=== PATIENT | male | born 1955 | race Two or more races ===

== ENCOUNTER 2018-01-10 10:47 | Inpatient (IN) ==
--- NOTE | 2018-01-10 11:23 | ED ---
HPI General Chief Complaint: Chest Pain Stated Complaint: chest pain/headache/dizziness Time Seen by Provider: 01/10/18 10:58 Source: patient and family Mode of arrival: ambulatory Limitations: language barrier (Surgery Aid used to confirm history) History of Present Illness HPI Narrative: 62-year-old male states that in [place] he had a blood transfusion for low hemoglobin a couple months ago and they had rechecked his hemoglobin in November and it was at 6 and they placed him on iron but he has not had a recheck since then. He states he has been getting progressively more dizzy and lightheaded. He states for a couple weeks he has also had some chest pain is about a 3 out of 10. He states he takes aspirin but has not had any since yesterday. He states he also intermittently gets headaches but denies headache at this time. He denies any other concurrent complaints. He states he has been here since November. complaint: dizziness Onset (ago): week(s) Timing: gradual onset Description: lightheadedness History of similar episodes: Yes History of trauma: No Severity: mild Relieving factors: nothing Exacerbating factors: exertion Associated symptoms: chest pain Related Data Home Medications Medication Instructions Recorded Confirmed aspirin [Aspirin Low Dose] 81 mg PO DAILY 01/10/18 01/10/18 finasteride 5 mg PO DAILY 01/10/18 01/10/18 olmesartan-hydrochlorothiazide 1 tab PO DAILY 01/10/18 01/10/18 [Benicar HCT] tamsulosin [Flomax] 0.4 mg PO DAILY 01/10/18 01/10/18 Allergies Allergy/AdvReac Type Severity Reaction Status Date / Time No Known Allergies Allergy Unverified 01/10/18 11:16 Review of Systems ROS: all other systems reviewed are negative [facility] Medical History Medical History Anemia (Acute) HTN (hypertension) (Acute) Hypoglycemia (Acute) Murmur (Acute) Surgical History Surgical History History of tonsillectomy (Acute) Social History Social History Substance History: No History of Abuse Second Hand Smoke Exposure: No Smoking Status: Never smoker How Often Do You Have a Drink Containing Alcohol: Never Recent Travel in [facility] within the Last 8 Weeks: No Recent Out of Country Travel within the Last 8 Weeks: No Immunization History Tetanus Immunization: Never Vaccinated Hx Influenza Vaccine This Season: No Exam Narrative Exam Narrative: GENERAL: 62-year-old male in no apparent distress SKIN: Focused skin assessment warm/dry. HEAD: Atraumatic. Normocephalic. EYES: Pupils equal and round. No scleral icterus. No injection or drainage. ENT: No nasal bleeding or discharge. Mucous membranes pink and moist. NECK: Trachea midline. CARDIOVASCULAR: Regular rate and rhythm. No murmur appreciated. RESPIRATORY: No accessory muscle use. Clear to auscultation. Breath sounds equal bilaterally. GASTROINTESTINAL: Abdomen soft, non-tender, nondistended. MUSCULOSKELETAL: No obvious deformities. No clubbing. No cyanosis. No edema. NEUROLOGICAL: Awake and alert. No obvious cranial nerve deficits. Motor grossly within normal limits. Normal speech. PSYCHIATRIC: Appropriate mood and affect; insight and judgment normal. Course Reevaluation(s) Reevaluation #1: Patient updated and agrees to admission. Denies any active bleeding, aspirin held given anemia Consultations Consultation #1: resident team agrees to admit Initial Documented Vital Signs Temperature 98.3 F 01/10/18 10:49 Pulse Rate 106 H 01/10/18 10:49 Respiratory Rate 20 01/10/18 10:49 Blood Pressure 115/59 L 01/10/18 10:49 Pulse Oximetry 98 01/10/18 10:49 Last Documented Vital Signs Temperature 98.3 F 01/10/18 10:49 Pulse Rate 98 H 01/10/18 11:09 Respiratory Rate 18 01/10/18 11:09 Blood Pressure 130/68 01/10/18 11:09 Pulse Oximetry 98 01/10/18 12:37 Medical Decision Making MDM Narrative Medical decision making narrative: Will check blood work, imaging and reevaluate. Medical Screen Exam Complete: Yes Emergency Medical Condition: Yes Differential Diagnosis Differential Diagnosis: Anemia, gastritis, musculoskeletal, atypical cardiac Lab Data Lab results reviewed: Yes I reviewed the patient's lab results. Result diagrams: 01/10/18 11:20 01/10/18 11:20 Lab Results 01/10/18 01/10/18 01/10/18 Range/Units 11:20 11:20 11:20 WBC 4.4 (4.0-11.0) th/mm3 RBC 4.23 L (4.50-5.90) mil/mm3 Hgb 7.6 L (13.0-17.0) gm/dL Hct 25.8 L (39.0-51.0) % MCV 60.8 L (80.0-100.0) fL MCH 17.9 L (27.0-34.0) pg MCHC 29.5 L (32.0-36.0) % RDW 22.0 H (11.6-17.2) % Plt Count 388 (150-450) th/mm3 MPV 8.3 (7.0-11.0) fL Neut % (Auto) 52.3 (16.0-70.0) % Lymph % (Auto) 27.7 (9.0-44.0) % Mcdonald % (Auto) 16.0 H (0.0-8.0) % Eos % (Auto) 2.8 (0.0-4.0) % Baso % (Auto) 1.2 (0.0-2.0) % Neut # (Auto) 2.3 (1.8-7.7) th/mm3 Lymph # (Auto) 1.2 (1.0-4.8) th/mm3 Mcdonald # (Auto) 0.7 (0.0-0.9) th/mm3 Eos # (Auto) 0.1 (0.0-0.4) th/mm3 Baso # (Auto) 0.1 (0.0-0.2) th/mm3 WBC Differential . Differential Comment Auto diff final PT 10.7 (9.8-11.6) sec INR 1.1 Ratio APTT 23.7 L (24.3-30.1) sec Sodium 141 (136-145) meq/L Potassium 3.7 (3.5-5.1) meq/L Chloride 108 H (98-107) meq/L Carbon Dioxide 24.9 (21.0-32.0) meq/L Anion Gap 8 (5-15) meq/L BUN 15 (7-18) mg/dL Creatinine 0.94 (0.60-1.30) mg/dL Estimated GFR 81 L (>89) mL/min Random Glucose 142 H (74-106) mg/dL Calcium 8.0 L (8.5-10.1) mg/dL Magnesium (1.5-2.5) mg/dL Iron (65-175) mcg/dL TIBC (250-450) mcg/dL % Saturation (20-50) % Total Bilirubin 1.0 (0.2-1.0) mg/dL AST 16 (15-37) U/L ALT 22 (12-78) U/L Alkaline Phosphatase 46 (45-117) U/L Total Creatine Kinase 125 (39-308) U/L CK-MB (CK-2) 2.3 (0.5-3.6) ng/mL Troponin I Less than 0.02 L (0.02-0.05) ng/mL B-Natriuretic Peptide (0-100) pg/mL Total Protein 7.0 (6.4-8.2) g/dL Albumin 3.6 (3.4-5.0) g/dL Blood Type 01/10/18 01/10/18 01/10/18 Range/Units 11:20 11:20 11:20 WBC (4.0-11.0) th/mm3 RBC (4.50-5.90) mil/mm3 Hgb (13.0-17.0) gm/dL Hct (39.0-51.0) % MCV (80.0-100.0) fL MCH (27.0-34.0) pg MCHC (32.0-36.0) % RDW (11.6-17.2) % Plt Count (150-450) th/mm3 MPV (7.0-11.0) fL Neut % (Auto) (16.0-70.0) % Lymph % (Auto) (9.0-44.0) % Mcdonald % (Auto) (0.0-8.0) % Eos % (Auto) (0.0-4.0) % Baso % (Auto) (0.0-2.0) % Neut # (Auto) (1.8-7.7) th/mm3 Lymph # (Auto) (1.0-4.8) th/mm3 Mcdonald # (Auto) (0.0-0.9) th/mm3 Eos # (Auto) (0.0-0.4) th/mm3 Baso # (Auto) (0.0-0.2) th/mm3 WBC Differential Differential Comment PT (9.8-11.6) sec INR Ratio APTT (24.3-30.1) sec Sodium (136-145) meq/L Potassium (3.5-5.1) meq/L Chloride (98-107) meq/L Carbon Dioxide (21.0-32.0) meq/L Anion Gap (5-15) meq/L BUN (7-18) mg/dL Creatinine (0.60-1.30) mg/dL Estimated GFR (>89) mL/min Random Glucose (74-106) mg/dL Calcium (8.5-10.1) mg/dL Magnesium 2.0 (1.5-2.5) mg/dL Iron (65-175) mcg/dL TIBC (250-450) mcg/dL % Saturation (20-50) % Total Bilirubin (0.2-1.0) mg/dL AST (15-37) U/L ALT (12-78) U/L Alkaline Phosphatase (45-117) U/L Total Creatine Kinase (39-308) U/L CK-MB (CK-2) (0.5-3.6) ng/mL Troponin I (0.02-0.05) ng/mL B-Natriuretic Peptide 66 (0-100) pg/mL Total Protein (6.4-8.2) g/dL Albumin (3.4-5.0) g/dL Blood Type O Positive 01/10/18 Range/Units 11:20 WBC (4.0-11.0) th/mm3 RBC (4.50-5.90) mil/mm3 Hgb (13.0-17.0) gm/dL Hct (39.0-51.0) % MCV (80.0-100.0) fL MCH (27.0-34.0) pg MCHC (32.0-36.0) % RDW (11.6-17.2) % Plt Count (150-450) th/mm3 MPV (7.0-11.0) fL Neut % (Auto) (16.0-70.0) % Lymph % (Auto) (9.0-44.0) % Mcdonald % (Auto) (0.0-8.0) % Eos % (Auto) (0.0-4.0) % Baso % (Auto) (0.0-2.0) % Neut # (Auto) (1.8-7.7) th/mm3 Lymph # (Auto) (1.0-4.8) th/mm3 Mcdonald # (Auto) (0.0-0.9) th/mm3 Eos # (Auto) (0.0-0.4) th/mm3 Baso # (Auto) (0.0-0.2) th/mm3 WBC Differential Differential Comment PT (9.8-11.6) sec INR Ratio APTT (24.3-30.1) sec Sodium (136-145) meq/L Potassium (3.5-5.1) meq/L Chloride (98-107) meq/L Carbon Dioxide (21.0-32.0) meq/L Anion Gap (5-15) meq/L BUN (7-18) mg/dL Creatinine (0.60-1.30) mg/dL Estimated GFR (>89) mL/min Random Glucose (74-106) mg/dL Calcium (8.5-10.1) mg/dL Magnesium (1.5-2.5) mg/dL Iron 22 L (65-175) mcg/dL TIBC 456 H (250-450) mcg/dL % Saturation 4.8 L (20-50) % Total Bilirubin (0.2-1.0) mg/dL AST (15-37) U/L ALT (12-78) U/L Alkaline Phosphatase (45-117) U/L Total Creatine Kinase (39-308) U/L CK-MB (CK-2) (0.5-3.6) ng/mL Troponin I (0.02-0.05) ng/mL B-Natriuretic Peptide (0-100) pg/mL Total Protein (6.4-8.2) g/dL Albumin (3.4-5.0) g/dL Blood Type Imaging Data Attestation: I personally reviewed and interpreted this imaging study as follows : Radiologist's impression: Chest X-Ray 01/10/18 11:16 CONCLUSION: No acute cardiopulmonary disease. Hiatal hernia. Discharge Plan Discharge Disposition Patient Disposition: 30 Still Patient Discharge Condition Condition: Stable Discharge Details Diagnosis: Anemia, Dizziness, Chest pain Physicians Team ED Provider: Dianne Guzman Primary Care Provider: Primary Care Mellisa Muniz Rxs /Orders / Referrals /Forms Prescriptions: No Action aspirin [Aspirin Low Dose] 81 mg Tablet,Delayed Release (Dr/Ec) 81 mg PO DAILY RF: 0 tamsulosin [Flomax] 0.4 mg Capsule,Extended Release 24hr 0.4 mg PO DAILY RF: 0 finasteride 5 mg Tablet 5 mg PO DAILY RF: 0 olmesartan-hydrochlorothiazide [Benicar HCT] 40-25 mg Tablet 1 tab PO DAILY RF: 0 Discharge Instructions Patient Printed Instructions: Chest Pain (ED) Discharge Interventions Interventions: Vital Signs Last Done: 01/10/18 11:09 Status ED Status: Admitted Patient
[2018-01-10 11:55] LABS: Baso # (Auto) 0.1 th/mm3 (0.0-0.2); Baso % (Auto) 1.2 % (0.0-2.0); Eos # (Auto) 0.1 th/mm3 (0.0-0.4); Eos % (Auto) 2.8 % (0.0-4.0); Hematocrit 25.8 % (39.0-51.0); Hemoglobin 7.6 gm/dL (13.0-17.0); Lymph # (Auto) 1.2 th/mm3 (1.0-4.8); Lymph % (Auto) 27.7 % (9.0-44.0); Mean Corpuscular Hemoglobin 17.9 pg (27.0-34.0); Mean Corpuscular Volume 60.8 fL (80.0-100.0); Mean Platelet Volume 8.3 fL (7.0-11.0); Mono # (Auto) 0.7 th/mm3 (0.0-0.9); Neut # (Auto) 2.3 th/mm3 (1.8-7.7); Neut % (Auto) 52.3 % (16.0-70.0); Platelet Count 388 th/mm3 (150-450); Red Blood Count 4.23 mil/mm3 (4.50-5.90); White Blood Count 4.4 th/mm3 (4.0-11.0)
[2018-01-10 11:56] LABS: Mean Corpuscular HGB Conc 29.5 % (32.0-36.0)
--- NOTE | 2018-01-10 11:59 | XR ---
EXAM DATE: 01/10/2018 11:51 AM EDT AGE/SEX: 62 years / Male INDICATIONS: Chest pain. CLINICAL DATA: This is the patient's initial encounter. Patient reports that signs and symptoms have been present for 1 day and indicates a pain score of 5/10. MEDICAL/SURGICAL HISTORY: Hypertension. None. COMPARISON: No prior exams available for comparison. FINDINGS: A single AP view of the chest demonstrates the lungs to be symmetrically aerated without evidence of mass, infiltrate or effusion. The cardiomediastinal contours are unremarkable. Hiatal hernia. Osseou s structures are intact. CONCLUSION: No acute cardiopulmonary disease. Hiatal hernia. Electronically signed by: Gregor Gale MD 01/10/2018 11:58 AM EDT
[2018-01-10 12:04] LABS: Activated Partial Thrombo Time 23.7 sec (24.3-30.1); INR 1.1 Ratio; Prothrombin Time 10.7 sec (9.8-11.6)
[2018-01-10 12:05] LABS: Alanine Aminotransferase 22 U/L (12-78); Albumin 3.6 g/dL (3.4-5.0); Anion Gap 8 meq/L (5-15); Aspartate Aminotransferase 16 U/L (15-37); Blood Urea Nitrogen 15 mg/dL (7-18); Carbon Dioxide 24.9 meq/L (21.0-32.0); Chloride 108 meq/L (98-107); Glomerular Filtration Rate 81 mL/min (>89); Glucose,Random 142 mg/dL (74-106); Potassium 3.7 meq/L (3.5-5.1); Sodium 141 meq/L (136-145)
[2018-01-10 12:08] LABS: Alkaline Phosphatase 46 U/L (45-117); Creatine Kinase 125 U/L (39-308)
[2018-01-10 12:20] LABS: Creatine Kinase MB 2.3 ng/mL (0.5-3.6)
[2018-01-10 12:57] LABS: % Iron Saturation 4.8 % (20-50); Iron 22 mcg/dL (65-175); Total Iron Binding Capacity 456 mcg/dL (250-450)
[2018-01-10] MEDS ORDERED: Sodium Chlor 0.9% Inj 250 ML IV.SIG SCH (13:00)
[2018-01-10] MEDS ORDERED: Bisacodyl 10 MG Supp RECTAL PRN (13:19)
[2018-01-10] MEDS ORDERED: Temazepam 15 MG Capsule PO PRN (13:19)
[2018-01-10] MEDS ORDERED: Acetaminophen 325 MG Tablet PO PRN (13:19)
--- NOTE | 2018-01-10 13:48 | P.HPFP ---
History of Present Illness Primary Care Physician: No Primary Care Physician <Clarissa Torres - 01/11/18 13:08> No Primary Care Physician <Jean Krishna - 01/10/18 13:48> Chief Complaint: Dizziness and chest discomfort <Jean Krishna - 01/10/18 13:48> History of Present Illness: 62-year-old Danish-speaking male with a history of hypertension, hyperlipidemia , anxiety and depression as well as a known history of anemia presenting to the emergency department with complaints of dizziness and chest discomfort. Patient states for the last several months he has had occasional dizziness/ lightheadedness. He also endorses left-sided headache and occasional blurry vision. Denies any syncopal episodes, falls or injuries. States for the last week he has had occasional exertional chest pain. Describes it as substernal pressure that does not radiate to his neck, back or shoulder. Patient states that he has been told he has anemia for the last 10 years. He was told previously that it was a "production problem" and states he has had 3 different blood transfusions over the last 10 years while in [place]. He also states that 2 months ago he was in [facility] and went to hospital for the dizziness and had an EGD/colonoscopy done, but was not told what the results were. He states he did not receive a blood transfusion at that time. Denies any hematemesis, melena, blood in his stool. Patient has been taking supplemental iron and has received vitamin B12 shots in the past as well. He is not established with a primary care physician since moving to the [facility]. <Jean Krishna - 01/10/18 13:48> - Diagnosis (1) Anemia (2) Chest pain (3) Dizziness (4) HTN (hypertension) (5) BPH (benign prostatic hyperplasia) (6) Nutrition, metabolism, and development symptoms <Clarissa Torres - 01/11/18 13:08> (1) Anemia (2) Chest pain (3) Dizziness (4) HTN (hypertension) (5) BPH (benign prostatic hyperplasia) (6) Nutrition, metabolism, and development symptoms <Jean Krishna - 01/10/18 13:26> Inpatient Certification: I certify that the inpatient services were ordered in accordance with Medicare regulations governing the order. This includes certification that hospital inpatient services are reasonable and necessary and in the case of services not specified as inpatient-only under 42 CFR 419.22(n), that they are appropriately provided as inpatient services in accordance to with the 2-midnight benchmark under 43 CFR 412.3(e) <MelissaClarissa M 01/11/18 13:08> Review of Systems Constitutional: Reports headache(s), Denies chills, Denies fever(s) <Jean Krishna 01/10/18 13:48> Ears, Nose, Mouth, and Throat: Denies nosebleed, Denies sore throat <Jean Krishna 01/10/18 13:48> Cardiovascular: Reports chest pain, Reports chest pain with activity, Denies irregular heart rhythm, Denies radiating jaw, neck or arm pain <Jean Krishna 01/10/18 13:48> Respiratory: Denies cough, Denies wheezing <Jean Krishna 01/10/18 13:48> Gastrointestinal: Denies abdominal pain, Denies black, tarry stools, Denies change in stools, Denies vomiting, Denies vomiting blood <Jean Krishna 01/10/18 13:48> Hematologic/Lymphatic: Denies easy bleeding, Denies easy bruising <Jean Krishna 01/10/18 13:48> PMFSH - History History Provided By: Patient, Family Member <Jean Krishna 01/10/18 13:48 > - Medical History Medical History: Medical History (Last Reviewed 01/10/18 @ 13:35 by Jean Krishna MD, R2) Anemia HTN (hypertension) Hypoglycemia Murmur <Clarissa Torres 01/11/18 13:08> Medical History (Last Reviewed 01/10/18 @ 13:35 by Jean Krishna MD, R2) Anemia HTN (hypertension) Hypoglycemia Murmur <Jean Krishna 01/10/18 13:48> - Surgical History Surgical History: Surgical History (Last Reviewed 01/10/18 @ 13:35 by Jean Krishna MD, R2) History of tonsillectomy <Clarissa Torres 01/11/18 13:08> Surgical History (Last Reviewed 01/10/18 @ 13:35 by Jean Krishna MD, R2) History of tonsillectomy <Jean Krishna - 01/10/18 13:48> - Tobacco History Second Hand Smoke Exposure: No <Jean Krishna 01/10/18 13:48> Smoking Status: Never smoker <Jean Krishna 01/10/18 13:48> - Alcohol History How Often Do You Have a Drink Containing Alcohol: Never <Jean Krishna 13:48> - Substance Use History Substance History: No History of Abuse <Jean Krishna 01/10/18 13:48> - Travel History Recent Travel in the [place] Within the Last 8 Weeks: No <Jean Krishna 01/10 13:48> Recent Travel Out of the Country Within the Last 8 Weeks: No <Jean Krishna 01/10/18 13:48> - Immunization History Tetanus Immunization: Never Vaccinated <Jean Krishna 01/10/18 13:48> Hx Influenza Vaccine This Season: No <Jean Krishna 01/10/18 13:48> Medications and Allergies Allergies Allergy/AdvReac Type Severity Reaction Status Date / Time No Known Allergies Allergy Unverified 01/10/18 11:16 <Clarissa Torres - 01/11/18 13:08> Home Medications Medication Instructions Recorded Confirmed Type aspirin [Aspirin Low Dose] 81 mg PO DAILY 01/10/18 01/10/18 History finasteride 5 mg PO DAILY 01/10/18 01/10/18 History olmesartan-hydrochlorothiazide 1 tab PO DAILY 01/10/18 01/10/18 History [Benicar HCT] tamsulosin [Flomax] 0.4 mg PO DAILY 01/10/18 01/10/18 History <Clarissa Torres - 01/11/18 13:08> Active Medications: Active Medications Acetaminophen (Tylenol) 650 mg PO Q4H PRN PRN Reason: Temp > 100.4 Al Hydroxide/Mg Hydroxide (Milk Of Magnesia Liq) 30 ml PO Q12H PRN PRN Reason: Mild Constipation Bisacodyl (Dulcolax Supp) 10 mg RECTAL DAILY PRN PRN Reason: SEVERE CONSITIPATION Finasteride (Proscar) 5 mg PO DAILY [facility] Last Admin: 01/11/18 08:50 Dose: 5 mg Hydrochlorothiazide (Hydrodiuril) 25 mg PO DAILY [facility] Last Admin: 01/11/18 08:49 Dose: 25 mg Lactulose (Lactulose Liq) 30 ml PO DAILY PRN PRN Reason: SEVERE CONSITIPATION Losartan Potassium (Cozaar) 50 mg PO DAILY [facility] Last Admin: 01/11/18 08:49 Dose: 50 mg Ondansetron HCl (Zofran Inj) 4 mg IV.PUSH Q6H PRN PRN Reason: NAUSEA OR VOMITING Senna/Docusate Sodium (Cecille-Colace) 1 tab PO BID [facility] Last Admin: 01/11/18 08:50 Dose: 1 tab Sennosides (Senokot) 17.2 mg PO Q12H PRN PRN Reason: Moderate Constipation Sodium Chloride (Ns Flush) 2 ml IV.FLUSH UNSCH PRN PRN Reason: FLUSH AFTER USING IV ACCESS Last Admin: 01/10/18 21:13 Dose: 2 ml Tamsulosin HCl (Flomax) 0.4 mg PO DAILY [facility] Last Admin: 01/11/18 08:49 Dose: 0.4 mg Temazepam (Restoril) 15 mg PO HS PRN PRN Reason: INSOMNIA <Clarissa Torres - 01/11/18 13:08> Active Medications Acetaminophen (Tylenol) 650 mg PO Q4H PRN PRN Reason: Temp > 100.4 Al Hydroxide/Mg Hydroxide (Milk Of Magnesia Liq) 30 ml PO Q12H PRN PRN Reason: Mild Constipation Bisacodyl (Dulcolax Supp) 10 mg RECTAL DAILY PRN PRN Reason: SEVERE CONSITIPATION Sodium Chloride (Ns Inj) 250 mls @ 15 mls/hr IV.SIG ONCE [facility] Stop: 01/11/18 05:39 Lactulose (Lactulose Liq) 30 ml PO DAILY PRN PRN Reason: SEVERE CONSITIPATION Ondansetron HCl (Zofran Inj) 4 mg IV.PUSH Q6H PRN PRN Reason: NAUSEA OR VOMITING Senna/Docusate Sodium (Cecille-Colace) 1 tab PO BID [facility] Sennosides (Senokot) 17.2 mg PO Q12H PRN PRN Reason: Moderate Constipation Sodium Chloride (Ns Flush) 2 ml IV.FLUSH UNSCH PRN PRN Reason: FLUSH AFTER USING IV ACCESS Temazepam (Restoril) 15 mg PO HS PRN PRN Reason: INSOMNIA <Jean Krishna B - 01/10/18 13:48> Exam Vital signs: Vital Signs 01/10/18 14:00 01/10/18 14:15 01/10/18 14:30 Temperature 98.6 F 98.6 F 98.4 F Pulse Rate 90 79 76 Respiratory Rate 18 18 18 Blood Pressure 114/62 114/62 115/69 Pulse Oximetry 96 96 01/10/18 14:42 01/10/18 16:48 01/10/18 18:10 Temperature 98.4 F 98.0 F 97.5 F L Pulse Rate 81 73 73 Respiratory Rate 18 16 16 Blood Pressure 115/69 116/70 121/79 Pulse Oximetry 96 95 01/10/18 18:32 01/10/18 19:45 01/10/18 20:00 Temperature 98.2 F 97.9 F Pulse Rate 75 81 81 Respiratory Rate 17 18 Blood Pressure 115/75 119/68 Pulse Oximetry 97 96 01/10/18 21:38 01/10/18 23:45 01/11/18 00:00 Temperature 98.2 F 98.3 F Pulse Rate 83 73 80 Respiratory Rate 18 18 Blood Pressure 121/68 131/75 Pulse Oximetry 95 96 01/11/18 04:00 01/11/18 08:00 01/11/18 09:00 Temperature 98.2 F 98.2 F Pulse Rate 77 81 84 Respiratory Rate 18 20 Blood Pressure 128/81 131/89 Pulse Oximetry 96 97 Intake & Output 01/10/18 01/11/18 01/11/18 18:59 06:59 18:59 Intake Total 400 / 400 290 / 290 Balance 400 / 400 290 / 290 Weight 100 kg 116.5 kg Intake: IV 50 / 50 NS Inj 250 ML @ 15 mls/hr IV. 50 / 50 SIG ONCE NEELAM Rx#:[id number] Oral 240 / 240 Intake (Blood Product) Amt 400 / 400 0 / 0 Rbc As-3 Leukoreduced Unit 0 / 0 0 / 0 [id number] Rbc As-3 Leukoreduced Unit 400 / 400 [id number] Other: # Voids 2 # Bowel Movements 0 Weight On Admission 100 kg <Clarissa Torres - 01/11/18 13:08> Vital Signs 01/10/18 10:49 01/10/18 11:09 01/10/18 12:37 Temperature 98.3 F Pulse Rate 106 H 98 H Respiratory Rate 20 18 Blood Pressure 115/59 L 130/68 Pulse Oximetry 98 97 98 Intake & Output 01/09/18 01/10/18 01/10/18 18:59 06:59 18:59 Weight 100 kg <Jean Krishna Janay - 01/10/18 13:48> Narrative: GENERAL: Well-developed well-nourished pleasant male sitting upright in bed in no acute distress. Danish-speaking only. SKIN: Warm and dry. Palms of the hands are pale HEAD: Atraumatic. Normocephalic. EYES: Pupils equal and round. No scleral icterus. Conjunctive are pale ENT: No nasal bleeding or discharge. MMM NECK: Trachea midline. No JVD. CARDIOVASCULAR: Regular rate and rhythm. RESPIRATORY: No accessory muscle use. Clear to auscultation. Breath sounds equal bilaterally. GASTROINTESTINAL: Abdomen soft, non-tender, nondistended. Hepatic and splenic margins not palpable. MUSCULOSKELETAL: Extremities without clubbing, cyanosis. Trace 1+ pitting edema distal to the midshin bilaterally. No obvious deformities. NEUROLOGICAL: Awake and alert. No obvious cranial nerve deficits. Motor grossly within normal limits. Five out of 5 muscle strength in the arms and legs. Normal speech. PSYCHIATRIC: Appropriate mood and affect; insight and judgment normal. <Jean Krishna Janay - 01/10/18 13:48> Results - Labs Result diagrams: 01/11/18 04:16 01/11/18 04:16 <Clarissa Torres - 01/11/18 13:08> Abnormal lab results 01/10/18 01/10/18 01/10/18 Range/Units 11:20 11:20 11:20 Hgb (13.0-17.0) gm/dL Hct (39.0-51.0) % MCV (80.0-100.0) fL MCH (27.0-34.0) pg MCHC (32.0-36.0) % RDW (11.6-17.2) % Mclennan % (Auto) (0.0-8.0) % Mclennan # (Auto) (0.0-0.9) th/mm3 Monocytes % (Manual) (0-8) % Myelocytes % (Man) (0-0) % Tear Drop Cells (None) Ovalocytes (None) Retic Count (0.4-3.0) % Chloride (98-107) meq/L Estimated GFR (>89) mL/min Calcium (8.5-10.1) mg/dL Ferritin 2 L (26-388) ng/mL Troponin I (0.02-0.05) ng/mL Vitamin B12 1887 H (193-986) pg/mL Folate Greater than 20.0 H (3.1-17.5) ng/mL MTS Gel Crossmatch 01/10/18 01/10/18 01/10/18 Range/Units 11:20 13:01 17:18 Hgb (13.0-17.0) gm/dL Hct (39.0-51.0) % MCV (80.0-100.0) fL MCH (27.0-34.0) pg MCHC (32.0-36.0) % RDW (11.6-17.2) % Mclennan % (Auto) (0.0-8.0) % Mclennan # (Auto) (0.0-0.9) th/mm3 Monocytes % (Manual) (0-8) % Myelocytes % (Man) (0-0) % Tear Drop Cells (None) Ovalocytes (None) Retic Count 3.2 H (0.4-3.0) % Chloride (98-107) meq/L Estimated GFR (>89) mL/min Calcium (8.5-10.1) mg/dL Ferritin (26-388) ng/mL Troponin I Less than 0.02 L (0.02-0.05) ng/mL Vitamin B12 (193-986) pg/mL Folate (3.1-17.5) ng/mL MTS Gel Crossmatch See Detail 01/10/18 01/11/18 01/11/18 Range/Units 22:36 04:16 04:16 Hgb 9.5 L (13.0-17.0) gm/dL Hct 30.5 L (39.0-51.0) % MCV 66.5 L D (80.0-100.0) fL MCH 20.8 L (27.0-34.0) pg MCHC 31.2 L (32.0-36.0) % RDW 27.8 H D (11.6-17.2) % Mclennan % (Auto) 17.3 H (0.0-8.0) % Mclennan # (Auto) 1.0 H (0.0-0.9) th/mm3 Monocytes % (Manual) 16 H (0-8) % Myelocytes % (Man) 1 H (0-0) % Tear Drop Cells 1+ H (None) Ovalocytes 1+ H (None) Retic Count (0.4-3.0) % Chloride 108 H (98-107) meq/L Estimated GFR 84 L (>89) mL/min Calcium 8.4 L (8.5-10.1) mg/dL Ferritin (26-388) ng/mL Troponin I Less than 0.02 L (0.02-0.05) ng/mL Vitamin B12 (193-986) pg/mL Folate (3.1-17.5) ng/mL MTS Gel Crossmatch Short CBC 01/11/18 Range/Units 04:16 WBC 5.6 (4.0-11.0) th/mm3 Hgb 9.5 L (13.0-17.0) gm/dL Hct 30.5 L (39.0-51.0) % Plt Count 327 (150-450) th/mm3 BMP 01/11/18 04:16 Sodium 143 Potassium 3.9 Chloride 108 H Carbon Dioxide 24.3 BUN 13 Creatinine 0.91 Calcium 8.4 L Cardiac Enzymes 01/10/18 01/10/18 Range/Units 17:18 22:36 Troponin I Less than 0.02 L Less than 0.02 L (0.02-0.05) ng/mL <Clarissa Trores - 01/11/18 13:08> Abnormal lab results 01/10/18 01/10/18 01/10/18 Range/Units 11:20 11:20 11:20 RBC 4.23 L (4.50-5.90) mil/mm3 Hgb 7.6 L (13.0-17.0) gm/dL Hct 25.8 L (39.0-51.0) % MCV 60.8 L (80.0-100.0) fL MCH 17.9 L (27.0-34.0) pg MCHC 29.5 L (32.0-36.0) % RDW 22.0 H (11.6-17.2) % Mclennan % (Auto) 16.0 H (0.0-8.0) % APTT 23.7 L (24.3-30.1) sec Chloride 108 H (98-107) meq/L Estimated GFR 81 L (>89) mL/min Random Glucose 142 H (74-106) mg/dL Calcium 8.0 L (8.5-10.1) mg/dL Iron (65-175) mcg/dL TIBC (250-450) mcg/dL % Saturation (20-50) % Troponin I Less than 0.02 L (0.02-0.05) ng/mL Vitamin B12 (193-986) pg/mL Folate (3.1-17.5) ng/mL 01/10/18 01/10/18 Range/Units 11:20 11:20 RBC (4.50-5.90) mil/mm3 Hgb (13.0-17.0) gm/dL Hct (39.0-51.0) % MCV (80.0-100.0) fL MCH (27.0-34.0) pg MCHC (32.0-36.0) % RDW (11.6-17.2) % Mclennan % (Auto) (0.0-8.0) % APTT (24.3-30.1) sec Chloride (98-107) meq/L Estimated GFR (>89) mL/min Random Glucose (74-106) mg/dL Calcium (8.5-10.1) mg/dL Iron 22 L (65-175) mcg/dL TIBC 456 H (250-450) mcg/dL % Saturation 4.8 L (20-50) % Troponin I (0.02-0.05) ng/mL Vitamin B12 1887 H (193-986) pg/mL Folate Greater than 20.0 H (3.1-17.5) ng/mL Short CBC 01/10/18 Range/Units 11:20 WBC 4.4 (4.0-11.0) th/mm3 Hgb 7.6 L (13.0-17.0) gm/dL Hct 25.8 L (39.0-51.0) % Plt Count 388 (150-450) th/mm3 [facility] 01/10/18 11:20 Sodium 141 Potassium 3.7 Chloride 108 H Carbon Dioxide 24.9 BUN 15 Creatinine 0.94 Calcium 8.0 L Cardiac Enzymes 01/10/18 Range/Units 11:20 Total Creatine Kinase 125 (39-308) U/L CK-MB (CK-2) 2.3 (0.5-3.6) ng/mL Troponin I Less than 0.02 L (0.02-0.05) ng/mL Liver Function 01/10/18 Range/Units 11:20 Total Bilirubin 1.0 (0.2-1.0) mg/dL AST 16 (15-37) U/L ALT 22 (12-78) U/L Alkaline Phosphatase 46 (45-117) U/L Albumin 3.6 (3.4-5.0) g/dL <Jean Krishna - 01/10/18 13:48> - Imaging Impressions Chest X-Ray 01/10/18 11:16 CONCLUSION: No acute cardiopulmonary disease. Hiatal hernia. <Jean Krishna 01/10/18 13:48> Caprini VTE Risk Assessment Caprini VTE Risk Assessment: Moderate/High Risk (score >= 2) <Jean Krishna 01/10/18 13:48> Caprini Risk Assessment Model: Point Value = 1 Point Value = 2 Point Value = 3 Point Value = 5 Age 41-60 Minor surgery BMI > 25 kg/m2 Swollen legs Varicose veins or History of unexplained or recurrent spontaneous Oral contraceptives or hormone replacement Sepsis (< 1 month) Serious lung disease, including pneumonia (< 1 month) Abnormal pulmonary function Acute myocardial infarction Congestive heart failure (< 1 month) History of inflammatory bowel disease Medical patient at bed rest Age 61-74 Arthroscopic surgery Major open surgery (> 45 min) Laparoscopic surgery (> 45 min) Malignancy Confined to bed (> 72 hours) Immobilizing plaster cast Central venous access Age >= 75 History of VTE Family history of VTE Factor V Leiden Prothrombin [id number] Lupus anticoagulant Anticardiolipin antibodies Elevated serum homocysteine Heparin-induced thrombocytopenia Other congenital or acquired thrombophilia Stroke (< 1 month) Elective arthroplasty Hip, pelvis, or leg fracture Acute spinal cord injury (< 1 month) <Clarissa Torres - 01/11/18 13:08> Point Value = 1 Point Value = 2 Point Value = 3 Point Value = 5 Age 41-60 Minor surgery BMI > 25 kg/m2 Swollen legs Varicose veins or History of unexplained or recurrent spontaneous Oral contraceptives or hormone replacement Sepsis (< 1 month) Serious lung disease, including pneumonia (< 1 month) Abnormal pulmonary function Acute myocardial infarction Congestive heart failure (< 1 month) History of inflammatory bowel disease Medical patient at bed rest Age 61-74 Arthroscopic surgery Major open surgery (> 45 min) Laparoscopic surgery (> 45 min) Malignancy Confined to bed (> 72 hours) Immobilizing plaster cast Central venous access Age >= 75 History of VTE Family history of VTE Factor V Leiden Prothrombin [id number] Lupus anticoagulant Anticardiolipin antibodies Elevated serum homocysteine Heparin-induced thrombocytopenia Other congenital or acquired thrombophilia Stroke (< 1 month) Elective arthroplasty Hip, pelvis, or leg fracture Acute spinal cord injury (< 1 month) <Jean Krishna - 01/10/18 13:48> Prophylaxis Regimen: Total Risk Factor Score Risk Level Prophylaxis Regimen 0-1 Low Early ambulation 2 Moderate Order ONE of the following: *Sequential Compression Device (SCD) *Heparin 5000 units SQ BID 3-4 Higher Order ONE of the following medications: *Heparin 5000 units SQ TID *Enoxaparin/Lovenox 40 mg SQ daily (WT < 150 kg, CrCl > 30 mL/min) *Enoxaparin/Lovenox 30 mg SQ daily (WT < 150 kg, CrCl > 10-29 mL/min) *Enoxaparin/Lovenox 30 mg SQ BID (WT < 150 kg, CrCl > 30 mL/min) AND/OR *Sequential Compression Device (SCD) 5 or more Highest Order ONE of the following medications: *Heparin 5000 units SQ TID (Preferred with Epidurals) *Enoxaparin/Lovenox 40 mg SQ daily (WT < 150 kg, CrCl > 30 mL/min) *Enoxaparin/Lovenox 30 mg SQ daily (WT < 150 kg, CrCl > 10-29 mL/min) *Enoxaparin/Lovenox 30 mg SQ BID (WT < 150 kg, CrCl > 30 mL/min) AND *Sequential Compression Device (SCD) <Clarissa Torres - 01/11/18 13:08> Total Risk Factor Score Risk Level Prophylaxis Regimen 0-1 Low Early ambulation 2 Moderate Order ONE of the following: *Sequential Compression Device (SCD) *Heparin 5000 units SQ BID 3-4 Higher Order ONE of the following medications: *Heparin 5000 units SQ TID *Enoxaparin/Lovenox 40 mg SQ daily (WT < 150 kg, CrCl > 30 mL/min) *Enoxaparin/Lovenox 30 mg SQ daily (WT < 150 kg, CrCl > 10-29 mL/min) *Enoxaparin/Lovenox 30 mg SQ BID (WT < 150 kg, CrCl > 30 mL/min) AND/OR *Sequential Compression Device (SCD) 5 or more Highest Order ONE of the following medications: *Heparin 5000 units SQ TID (Preferred with Epidurals) *Enoxaparin/Lovenox 40 mg SQ daily (WT < 150 kg, CrCl > 30 mL/min) *Enoxaparin/Lovenox 30 mg SQ daily (WT < 150 kg, CrCl > 10-29 mL/min) *Enoxaparin/Lovenox 30 mg SQ BID (WT < 150 kg, CrCl > 30 mL/min) AND *Sequential Compression Device (SCD) <Jean Krishna - 01/10/18 13:48> Assessment and Plan - Assessment (1) Anemia Code(s): D64.9 - Anemia, unspecified Status: Acute (2) Chest pain Code(s): R07.9 - Chest pain, unspecified Status: Acute (3) Dizziness Code(s): R42 - Dizziness and giddiness Status: Acute (4) HTN (hypertension) Code(s): I10 - Essential (primary) hypertension Status: Acute (5) BPH (benign prostatic hyperplasia) Code(s): N40.0 - Benign prostatic hyperplasia without lower urinary tract symptoms Status: Acute (6) Nutrition, metabolism, and development symptoms Code(s): R63.8 - Other symptoms and signs concerning food and fluid intake Status: Acute <Clarissa Torres - 01/11/18 13:08> (1) Anemia Code(s): D64.9 - Anemia, unspecified Status: Acute Plan: Patient with a reported history of anemia. Patient states that it was a "production problem" States he has taken supplemental iron and vitamin B12 Has required 3 prior blood transfusions over the last 10 years H&H of 7.6/25.8, MCV 60.8 on admission RDW 22 Normal WBC, platelet counts Renal function normal on admission Transfusing 1 unit and will repeat H&H Iron studies, ferritin, reticulocyte count, vitamin 12 and folate pending Fecal occult blood pending Will consider GI versus hematology consult pending initial workup (2) Chest pain Code(s): R07.9 - Chest pain, unspecified Status: Acute Plan: 1 week history of substernal chest discomfort on exertion Initial ACS workup was negative Will trend troponins and EKGs Telemetry Could well be secondary to his anemia, but will rule out ACS overnight (3) Dizziness Code(s): R42 - Dizziness and giddiness Status: Acute Plan: Several month history of occasional dizziness/lightheadedness A known history of anemia No falls or injuries See workup as above (4) HTN (hypertension) Code(s): I10 - Essential (primary) hypertension Status: Acute Plan: Known history of hypertension Takes Benicar HCT daily, will continue home medication (5) BPH (benign prostatic hyperplasia) Code(s): N40.0 - Benign prostatic hyperplasia without lower urinary tract symptoms Status: Acute Plan: Known history of BPH Takes tamsulosin and finasteride daily Will continue his home medications (6) Nutrition, metabolism, and development symptoms Code(s): R63.8 - Other symptoms and signs concerning food and fluid intake Status: Acute Plan: No IV fluids at this time Regular diet SCDs for DVT prophylaxis for now <Jean Krishna - 01/10/18 13:26> - Assessment and Plan 62-year-old male with history of hypertension, BPH, HLD and a known history of anemia presenting to the ED with dizziness and chest discomfort. Found to be anemic on admission and will be transfused 1 unit of PRBCs. Will admit for ACS rule out and anemia workup. Seen and discussed with Dr. Torres <Jean Krishna - 01/10/18 13:48> - Attending Attestation The exam, history, and the medical decision-making described in the above note were completed with the assistance of the resident physician. I reviewed and agree with the findings presented. I attest that I had a [id number] encounter with the patient on the same day, and personally performed and documented my assessment and findings in the medical record. He was seen along with Dr. Krishna at the time of admission. We had the city controller on the computer. This gentleman gave a history of having 3 blood transfusions over about 10 years in [place]. He states he has been iron deficient for many years. It is unclear if he has some other problems that could be contributing to his anemia such as a production problem which is what I thought he was saying in Danish. Will obtain studies before he gets transfused to be sure about what problem he may have causing his anemia. <Clarissa Torres M - 01/11/18 13:08> <Jean Krishna B - Last Filed: 01/10/18 13:26> (1) Anemia Qualifiers: Anemia type: unspecified type Qualified Code(s): D64.9 - Anemia, unspecified (2) Chest pain Qualifiers: Chest pain type: unspecified Qualified Code(s): R07.9 - Chest pain, unspecified <Clarissa Torres M - Last Filed: 01/11/18 13:08> (1) Anemia Qualifiers: Anemia type: unspecified type Qualified Code(s): D64.9 - Anemia, unspecified (2) Chest pain Qualifiers: Chest pain type: unspecified Qualified Code(s): R07.9 - Chest pain, unspecified <Jean Krishna B - Last Filed: 01/10/18 13:26> (1) Anemia Qualifiers: Anemia type: unspecified type Qualified Code(s): D64.9 - Anemia, unspecified (2) Chest pain Qualifiers: Chest pain type: unspecified Qualified Code(s): R07.9 - Chest pain, unspecified <Clarissa Torres M - Last Filed: 01/11/18 13:08> (1) Anemia Qualifiers: Anemia type: unspecified type Qualified Code(s): D64.9 - Anemia, unspecified (2) Chest pain Qualifiers: Chest pain type: unspecified Qualified Code(s): R07.9 - Chest pain, unspecified
[2018-01-10 14:01] LABS: Reticulocyte Percent 3.2 % (0.4-3.0)
[2018-01-10] MEDS: Finasteride 5 MG Tablet PO SCH (16:01)
[2018-01-10] MEDS: Senna/Docusate Sodium 8.6/50 MG Tablet PO SCH (21:13)
[2018-01-11 05:40] LABS: Baso # (Auto) 0.1 th/mm3 (0.0-0.2); Baso % (Auto) 1.2 % (0.0-2.0); Eos # (Auto) 0.2 th/mm3 (0.0-0.4); Eos % (Auto) 3.8 % (0.0-4.0); Hematocrit 30.5 % (39.0-51.0); Hemoglobin 9.5 gm/dL (13.0-17.0); Lymph # (Auto) 1.6 th/mm3 (1.0-4.8); Mean Corpuscular HGB Conc 31.2 % (32.0-36.0); Mean Corpuscular Hemoglobin 20.8 pg (27.0-34.0); Mean Corpuscular Volume 66.5 fL (80.0-100.0); Mean Platelet Volume 8.3 fL (7.0-11.0); Mono % (Auto) 17.3 % (0.0-8.0); Neut # (Auto) 2.7 th/mm3 (1.8-7.7); Neut % (Auto) 48.7 % (16.0-70.0); Platelet Count 327 th/mm3 (150-450); Red Blood Count 4.58 mil/mm3 (4.50-5.90); Red Cell Distribution Width 27.8 % (11.6-17.2); White Blood Count 5.6 th/mm3 (4.0-11.0)
[2018-01-11 06:04] LABS: Calcium 8.4 mg/dL (8.5-10.1); Carbon Dioxide 24.3 meq/L (21.0-32.0); Potassium 3.9 meq/L (3.5-5.1)
[2018-01-11 07:39] LABS: Eosinophils 3 % (0-4); Lymphocytes 28 % (9-44); Monocytes 16 % (0-8); Myelocytes 1 % (0-0)
[2018-01-11 07:40] LABS: Platelet Estimate Normal (Normal); Platelet Morphology Normal (Normal)
[2018-01-11 07:41] LABS: Ovalocytes 1+; Tear Drop Cells 1+
[2018-01-11] MEDS: hydroCHLOROthiazide 25 MG Tablet PO SCH (08:49)
[2018-01-11] MEDS: Finasteride 5 MG Tablet PO SCH (08:50)
[2018-01-11] MEDS: Senna/Docusate Sodium 8.6/50 MG Tablet PO SCH ×2 (08:50→21:17)
[2018-01-11] MEDS ORDERED: OLMESARTAN HYDROCHLOROTHIAZIDE PO SCH (09:00)
--- NOTE | 2018-01-11 10:05 | P.HPFP ---
History of Present Illness Primary Care Physician: No Primary Care Physician Chief Complaint: Dizziness and chest discomfort History of Present Illness: 62-year-old Mexican-speaking male with a history of hypertension, hyperlipidemia , anxiety and depression as well as a known history of anemia presented to the emergency department with complaints of dizziness and chest discomfort. Patient states through a speech therapist technician that for the last several months he has had occasional dizziness/lightheadedness. He also endorsed left-sided headache and occasional blurry vision. Denies any syncopal episodes, falls or injuries. States for the last week he has had occasional exertional chest pain. Describes it as substernal pressure that does not radiate to his neck, back or shoulder. Patient stated that he has been told he has anemia for the last 10 years. He was told previously that it was a "production problem" and states he has had 3 different blood transfusions over the last 10 years while in [place]. He also states that 2 months ago he was in [facility] and went to hospital for the dizziness and had an EGD/colonoscopy done, but was not told what the results were. He states he did not receive a blood transfusion at that time. Denies any hematemesis, melena, blood in his stool. Patient has been taking supplemental iron and has received vitamin B12 shots in the past as well. He is not established with a primary care physician since moving to the [facility]. Another speech therapist technician was employed today to get further history. He explains further that he did not have any sort of colonoscopy or scopes in [place]. He was told in [place] that when he came to the [facility] that he should strongly consider having that done. He denies now or in the past seeing blood in the stools but does have a long history of iron deficiency anemia. He also states that he saw a hvac mechanic but he was in [place] and I guess in [place] at the time and we will never be able to obtain those records. Because of his or the original assumption that he had already had colonoscopy gastroenterology was not consulted but on clarifying this today we will put the consult in. Any man particularly over the age of 50 who has iron deficiency anemia it needs to be strongly evaluated for GI bleeding. Otherwise he states he feels well overnight he has been walking around the room he has no problems a transfusion was ordered in the emergency department and he had that last night and feels completely asymptomatic as far as any chest pain or other dizziness or shortness of breath or anything else. - Diagnosis (1) Anemia (2) Chest pain (3) Dizziness (4) HTN (hypertension) (5) BPH (benign prostatic hyperplasia) (6) Nutrition, metabolism, and development symptoms Inpatient Certification: I certify that the inpatient services were ordered in accordance with Medicare regulations governing the order. This includes certification that hospital inpatient services are reasonable and necessary and in the case of services not specified as inpatient-only under 42 CFR 419.22(n), that they are appropriately provided as inpatient services in accordance to with the 2-midnight benchmark under 43 CFR 412.3(e) Estimated Total Length of Stay (Days): 2 Plans for Post Hospital Care: Home Review of Systems other (See history from yesterday) [facility] - History History Provided By: Patient - Medical History Medical History: Medical History (Last Reviewed 01/10/18 @ 13:35 by Jean Krishna MD, R2) Anemia HTN (hypertension) Hypoglycemia Murmur - Surgical History Surgical History: Surgical History (Last Reviewed 01/10/18 @ 13:35 by Jean Krishna MD, R2) History of tonsillectomy - Tobacco History Second Hand Smoke Exposure: No Smoking Status: Never smoker - Alcohol History How Often Do You Have a Drink Containing Alcohol: Never - Substance Use History Substance History: No History of Abuse - Travel History Recent Travel in the [place] Within the Last 8 Weeks: No Recent Travel Out of the Country Within the Last 8 Weeks: No - Immunization History Tetanus Immunization: Never Vaccinated Hx Influenza Vaccine This Season: No Medications and Allergies Active Medications: Active Medications Acetaminophen (Tylenol) 650 mg PO Q4H PRN PRN Reason: Temp > 100.4 Al Hydroxide/Mg Hydroxide (Milk Of Magnesia Liq) 30 ml PO Q12H PRN PRN Reason: Mild Constipation Bisacodyl (Dulcolax Supp) 10 mg RECTAL DAILY PRN PRN Reason: SEVERE CONSITIPATION Finasteride (Proscar) 5 mg PO DAILY [facility] Last Admin: 01/11/18 08:50 Dose: 5 mg Hydrochlorothiazide (Hydrodiuril) 25 mg PO DAILY [facility] Last Admin: 01/11/18 08:49 Dose: 25 mg Lactulose (Lactulose Liq) 30 ml PO DAILY PRN PRN Reason: SEVERE CONSITIPATION Losartan Potassium (Cozaar) 50 mg PO DAILY [facility] Last Admin: 01/11/18 08:49 Dose: 50 mg Ondansetron HCl (Zofran Inj) 4 mg IV.PUSH Q6H PRN PRN Reason: NAUSEA OR VOMITING Senna/Docusate Sodium (Cecille-Colace) 1 tab PO BID [facility] Last Admin: 01/11/18 08:50 Dose: 1 tab Sennosides (Senokot) 17.2 mg PO Q12H PRN PRN Reason: Moderate Constipation Sodium Chloride (Ns Flush) 2 ml IV.FLUSH UNSCH PRN PRN Reason: FLUSH AFTER USING IV ACCESS Last Admin: 01/10/18 21:13 Dose: 2 ml Tamsulosin HCl (Flomax) 0.4 mg PO DAILY [facility] Last Admin: 01/11/18 08:49 Dose: 0.4 mg Temazepam (Restoril) 15 mg PO HS PRN PRN Reason: INSOMNIA Allergies Allergy/AdvReac Type Severity Reaction Status Date / Time No Known Allergies Allergy Unverified 01/10/18 11:16 Home Medications Medication Instructions Recorded Confirmed Type aspirin [Aspirin Low Dose] 81 mg PO DAILY 01/10/18 01/10/18 History finasteride 5 mg PO DAILY 01/10/18 01/10/18 History olmesartan-hydrochlorothiazide 1 tab PO DAILY 01/10/18 01/10/18 History [Benicar HCT] tamsulosin [Flomax] 0.4 mg PO DAILY 01/10/18 01/10/18 History Exam Vital signs: Vital Signs 01/10/18 10:49 01/10/18 11:09 01/10/18 12:37 Temperature 98.3 F Pulse Rate 106 H 98 H Respiratory Rate 20 18 Blood Pressure 115/59 L 130/68 Pulse Oximetry 98 97 98 01/10/18 14:00 01/10/18 14:15 01/10/18 14:30 Temperature 98.6 F 98.6 F 98.4 F Pulse Rate 90 79 76 Respiratory Rate 18 18 18 Blood Pressure 114/62 114/62 115/69 Pulse Oximetry 96 96 01/10/18 14:42 01/10/18 16:48 01/10/18 18:10 Temperature 98.4 F 98.0 F 97.5 F L Pulse Rate 81 73 73 Respiratory Rate 18 16 16 Blood Pressure 115/69 116/70 121/79 Pulse Oximetry 96 95 01/10/18 18:32 01/10/18 19:45 01/10/18 20:00 Temperature 98.2 F 97.9 F Pulse Rate 75 81 81 Respiratory Rate 17 18 Blood Pressure 115/75 119/68 Pulse Oximetry 97 96 01/10/18 21:38 01/10/18 23:45 01/11/18 00:00 Temperature 98.2 F 98.3 F Pulse Rate 83 73 80 Respiratory Rate 18 18 Blood Pressure 121/68 131/75 Pulse Oximetry 95 96 01/11/18 04:00 01/11/18 08:00 Temperature 98.2 F 98.2 F Pulse Rate 77 81 Respiratory Rate 18 20 Blood Pressure 128/81 131/89 Pulse Oximetry 96 97 Intake & Output 01/10/18 01/11/18 01/11/18 18:59 06:59 18:59 Intake Total 400 / 400 290 / 290 Balance 400 / 400 290 / 290 Weight 100 kg 116.5 kg Intake: IV 50 / 50 NS Inj 250 ML @ 15 mls/hr IV. 50 / 50 SIG ONCE NEELAM Rx#:[id number] Oral 240 / 240 Intake (Blood Product) Amt 400 / 400 0 / 0 Rbc As-3 Leukoreduced Unit 0 / 0 0 / 0 [id number] Rbc As-3 Leukoreduced Unit 400 / 400 [id number] Other: # Voids 2 # Bowel Movements 0 Weight On Admission 100 kg - Constitutional no acute distress, average body habitus, cooperative - Routine HEENT Exam Head: Present: normocephalic, atraumatic. Absent: cushingoid faces, facial swelling Eye: Present: EOMI, PERRL. Absent: conjunctival icterus, scleral injection, conjunctivae pink ENT: Present: mucous membranes moist, external ear normal - Routine Neck Exam Present: supple, full ROM - Routine Chest/Breast/Axilla Exam Chest wall: Absent: tenderness - Routine Respiratory Exam Present: CTA bilaterally. Absent: accessory muscle use, patient mechanically ventilated, decreased breath sounds, rales, respiratory distress - Routine Cardiovascular Exam Present: RRR. Absent: murmur, gallop, rubs - Routine Abdominal Exam Present: soft, normoactive bowel sounds. Absent: tenderness, distended, rebound - Routine Extremities Exam Present: full ROM. Absent: cyanosis, clubbing, edema, amputation - Routine Skin Exam Present: intact, dry, normal turgor. Absent: jaundice - Routine Neurological Exam Present: alert, oriented X3, normal speech. Absent: sensory deficit, motor deficit Results - Labs Result diagrams: 01/11/18 04:16 01/11/18 04:16 Abnormal lab results 01/10/18 01/10/18 01/10/18 Range/Units 11:20 11:20 11:20 RBC 4.23 L (4.50-5.90) mil/mm3 Hgb 7.6 L (13.0-17.0) gm/dL Hct 25.8 L (39.0-51.0) % MCV 60.8 L (80.0-100.0) fL MCH 17.9 L (27.0-34.0) pg MCHC 29.5 L (32.0-36.0) % RDW 22.0 H (11.6-17.2) % Moffat % (Auto) 16.0 H (0.0-8.0) % Moffat # (Auto) (0.0-0.9) th/mm3 Monocytes % (Manual) (0-8) % Myelocytes % (Man) (0-0) % Tear Drop Cells (None) Ovalocytes (None) Retic Count (0.4-3.0) % APTT 23.7 L (24.3-30.1) sec Chloride 108 H (98-107) meq/L Estimated GFR 81 L (>89) mL/min Random Glucose 142 H (74-106) mg/dL Calcium 8.0 L (8.5-10.1) mg/dL Iron (65-175) mcg/dL TIBC (250-450) mcg/dL % Saturation (20-50) % Ferritin (26-388) ng/mL Troponin I Less than 0.02 L (0.02-0.05) ng/mL Vitamin B12 (193-986) pg/mL Folate (3.1-17.5) ng/mL MTS Gel Crossmatch 01/10/18 01/10/18 01/10/18 Range/Units 11:20 11:20 11:20 RBC (4.50-5.90) mil/mm3 Hgb (13.0-17.0) gm/dL Hct (39.0-51.0) % MCV (80.0-100.0) fL MCH (27.0-34.0) pg MCHC (32.0-36.0) % RDW (11.6-17.2) % Moffat % (Auto) (0.0-8.0) % Moffat # (Auto) (0.0-0.9) th/mm3 Monocytes % (Manual) (0-8) % Myelocytes % (Man) (0-0) % Tear Drop Cells (None) Ovalocytes (None) Retic Count (0.4-3.0) % APTT (24.3-30.1) sec Chloride (98-107) meq/L Estimated GFR (>89) mL/min Random Glucose (74-106) mg/dL Calcium (8.5-10.1) mg/dL Iron 22 L (65-175) mcg/dL TIBC 456 H (250-450) mcg/dL % Saturation 4.8 L (20-50) % Ferritin 2 L (26-388) ng/mL Troponin I (0.02-0.05) ng/mL Vitamin B12 1887 H (193-986) pg/mL Folate Greater than 20.0 H (3.1-17.5) ng/mL MTS Gel Crossmatch 01/10/18 01/10/18 01/10/18 Range/Units 11:20 13:01 17:18 RBC (4.50-5.90) mil/mm3 Hgb (13.0-17.0) gm/dL Hct (39.0-51.0) % MCV (80.0-100.0) fL MCH (27.0-34.0) pg MCHC (32.0-36.0) % RDW (11.6-17.2) % Moffat % (Auto) (0.0-8.0) % Moffat # (Auto) (0.0-0.9) th/mm3 Monocytes % (Manual) (0-8) % Myelocytes % (Man) (0-0) % Tear Drop Cells (None) Ovalocytes (None) Retic Count 3.2 H (0.4-3.0) % APTT (24.3-30.1) sec Chloride (98-107) meq/L Estimated GFR (>89) mL/min Random Glucose (74-106) mg/dL Calcium (8.5-10.1) mg/dL Iron (65-175) mcg/dL TIBC (250-450) mcg/dL % Saturation (20-50) % Ferritin (26-388) ng/mL Troponin I Less than 0.02 L (0.02-0.05) ng/mL Vitamin B12 (193-986) pg/mL Folate (3.1-17.5) ng/mL MTS Gel Crossmatch See Detail 01/10/18 01/11/18 01/11/18 Range/Units 22:36 04:16 04:16 RBC (4.50-5.90) mil/mm3 Hgb 9.5 L (13.0-17.0) gm/dL Hct 30.5 L (39.0-51.0) % MCV 66.5 L D (80.0-100.0) fL MCH 20.8 L (27.0-34.0) pg MCHC 31.2 L (32.0-36.0) % RDW 27.8 H D (11.6-17.2) % Moffat % (Auto) 17.3 H (0.0-8.0) % Moffat # (Auto) 1.0 H (0.0-0.9) th/mm3 Monocytes % (Manual) 16 H (0-8) % Myelocytes % (Man) 1 H (0-0) % Tear Drop Cells 1+ H (None) Ovalocytes 1+ H (None) Retic Count (0.4-3.0) % APTT (24.3-30.1) sec Chloride 108 H (98-107) meq/L Estimated GFR 84 L (>89) mL/min Random Glucose (74-106) mg/dL Calcium 8.4 L (8.5-10.1) mg/dL Iron (65-175) mcg/dL TIBC (250-450) mcg/dL % Saturation (20-50) % Ferritin (26-388) ng/mL Troponin I Less than 0.02 L (0.02-0.05) ng/mL Vitamin B12 (193-986) pg/mL Folate (3.1-17.5) ng/mL MTS Gel Crossmatch Short CBC 01/10/18 01/11/18 Range/Units 11:20 04:16 WBC 4.4 5.6 (4.0-11.0) th/mm3 Hgb 7.6 L 9.5 L (13.0-17.0) gm/dL Hct 25.8 L 30.5 L (39.0-51.0) % Plt Count 388 327 (150-450) th/mm3 BMP 01/10/18 01/11/18 11:20 04:16 Sodium 141 143 Potassium 3.7 3.9 Chloride 108 H 108 H Carbon Dioxide 24.9 24.3 BUN 15 13 Creatinine 0.94 0.91 Calcium 8.0 L 8.4 L Cardiac Enzymes 01/10/18 01/10/18 01/10/18 Range/Units 11:20 17:18 22:36 Total Creatine Kinase 125 (39-308) U/L CK-MB (CK-2) 2.3 (0.5-3.6) ng/mL Troponin I Less than 0.02 L Less than 0.02 L Less than 0.02 L (0.02-0.05) ng/mL Liver Function 01/10/18 Range/Units 11:20 Total Bilirubin 1.0 (0.2-1.0) mg/dL AST 16 (15-37) U/L ALT 22 (12-78) U/L Alkaline Phosphatase 46 (45-117) U/L Albumin 3.6 (3.4-5.0) g/dL - Imaging Impressions Chest X-Ray 01/10/18 11:16 CONCLUSION: No acute cardiopulmonary disease. Hiatal hernia. Caprini VTE Risk Assessment Caprini VTE Risk Assessment: Moderate/High Risk (score >= 2) Caprini Risk Assessment Model: Point Value = 1 Point Value = 2 Point Value = 3 Point Value = 5 Age 41-60 Minor surgery BMI > 25 kg/m2 Swollen legs Varicose veins or History of unexplained or recurrent spontaneous Oral contraceptives or hormone replacement Sepsis (< 1 month) Serious lung disease, including pneumonia (< 1 month) Abnormal pulmonary function Acute myocardial infarction Congestive heart failure (< 1 month) History of inflammatory bowel disease Medical patient at bed rest Age 61-74 Arthroscopic surgery Major open surgery (> 45 min) Laparoscopic surgery (> 45 min) Malignancy Confined to bed (> 72 hours) Immobilizing plaster cast Central venous access Age >= 75 History of VTE Family history of VTE Factor V Leiden Prothrombin [id number] Lupus anticoagulant Anticardiolipin antibodies Elevated serum homocysteine Heparin-induced thrombocytopenia Other congenital or acquired thrombophilia Stroke (< 1 month) Elective arthroplasty Hip, pelvis, or leg fracture Acute spinal cord injury (< 1 month) Prophylaxis Regimen: Total Risk Factor Score Risk Level Prophylaxis Regimen 0-1 Low Early ambulation 2 Moderate Order ONE of the following: *Sequential Compression Device (SCD) *Heparin 5000 units SQ BID 3-4 Higher Order ONE of the following medications: *Heparin 5000 units SQ TID *Enoxaparin/Lovenox 40 mg SQ daily (WT < 150 kg, CrCl > 30 mL/min) *Enoxaparin/Lovenox 30 mg SQ daily (WT < 150 kg, CrCl > 10-29 mL/min) *Enoxaparin/Lovenox 30 mg SQ BID (WT < 150 kg, CrCl > 30 mL/min) AND/OR *Sequential Compression Device (SCD) 5 or more Highest Order ONE of the following medications: *Heparin 5000 units SQ TID (Preferred with Epidurals) *Enoxaparin/Lovenox 40 mg SQ daily (WT < 150 kg, CrCl > 30 mL/min) *Enoxaparin/Lovenox 30 mg SQ daily (WT < 150 kg, CrCl > 10-29 mL/min) *Enoxaparin/Lovenox 30 mg SQ BID (WT < 150 kg, CrCl > 30 mL/min) AND *Sequential Compression Device (SCD) Assessment and Plan - Assessment (1) Anemia Code(s): D64.9 - Anemia, unspecified Status: Acute Plan: Patient with a reported history of anemia. Patient states that it was a "production problem" States he has taken supplemental iron and vitamin B12 Has required 3 prior blood transfusions over the last 10 years H&H of 7.6/25.8, MCV 60.8 on admission RDW 22 Normal WBC, platelet counts Renal function normal on admission Transfusing 1 unit and will repeat H&H Iron studies, ferritin, reticulocyte count, vitamin 12 and folate pending Fecal occult blood pending considered GI versus hematology consult pending initial workup. Initially our understanding was that he had had a recent colonoscopy though we would not probably be able to get the results as it was done in [place] however on further discussion today he did not have any testing done and was told improved that he requires endoscopy and colonoscopy so that will be pursued and GI will be consulted today. (2) Chest pain Code(s): R07.9 - Chest pain, unspecified Status: Acute Plan: 1 week history of substernal chest discomfort on exertion Initial ACS workup was negative Will trend troponins and EKGs Telemetry Could well be secondary to his anemia, ruled out ACS overnight Posttransfusion he has no pain is able to ambulate and is completely asymptomatic. (3) Dizziness Code(s): R42 - Dizziness and giddiness Status: Acute Plan: Several month history of occasional dizziness/lightheadedness A known history of anemia No falls or injuries See workup as above (4) HTN (hypertension) Code(s): I10 - Essential (primary) hypertension Status: Acute Plan: Known history of hypertension Takes Benicar HCT daily, will continue home medication (5) BPH (benign prostatic hyperplasia) Code(s): N40.0 - Benign prostatic hyperplasia without lower urinary tract symptoms Status: Acute Plan: Known history of BPH Takes tamsulosin and finasteride daily Will continue his home medications (6) Nutrition, metabolism, and development symptoms Code(s): R63.8 - Other symptoms and signs concerning food and fluid intake Status: Acute Plan: No IV fluids at this time Regular diet SCDs for DVT prophylaxis for now - Assessment and Plan 62-year-old male with history of hypertension, BPH, HLD and a known history of anemia presenting to the ED with dizziness and chest discomfort. Found to be anemic on admission and will be transfused 1 unit of PRBCs. Will admit for ACS rule out and anemia workup. Seen and discussed with Dr. Torres H&P: Quality - VTE Deep Vein Thrombosis/Pulmonary Embolism Present on Admission: No (1) Anemia Qualifiers: Anemia type: iron deficiency Iron deficiency anemia type: unspecified iron deficiency Qualified Code(s): D50.9 - Iron deficiency anemia, unspecified (2) Chest pain Qualifiers: Chest pain type: unspecified Qualified Code(s): R07.9 - Chest pain, unspecified (4) HTN (hypertension) Qualifiers: Hypertension type: essential hypertension Qualified Code(s): I10 - Essential (primary) hypertension (5) BPH (benign prostatic hyperplasia) Qualifiers: Lower urinary tract symptom presence: symptoms present Lower urinary tract symptom detail: unspecified Qualified Code(s): N40.1 - Benign prostatic hyperplasia with lower urinary tract symptoms
--- NOTE | 2018-01-11 13:12 | ECG ---
Date Performed: 01/10/2018 Time Performed: 10:59:29 PTAGE: 62 years EKG: Sinus rhythm WITH OCCASIONAL VENTRICULAR PREMATURE COMPLEXES BORDERLINE LEFT AXIS DEVIATION BORDERLINE ECG INTERP RETATION BASED ON A DEFAULT AGE OF 40 YEARS NO PREVIOUS TRACING DOCTOR: Shane Gaming Interpretating Date/Time 01/11/2018 13:09:56
--- NOTE | 2018-01-11 13:12 | ECG ---
Date Performed: 01/10/2018 Time Performed: 22:41:19 PTAGE: 62 years EKG: Sinus rhythm WITH FIRST DEGREE AV BLOCK BORDERLINE LEFT AXIS DEVIATION ABNORMAL ECG PREVIOUS TRACING : 01/10/2018 10.59 DOCTOR: hSane Gaming Interpretating Date/Time 01/11/2018 13:10:02
[2018-01-12 05:13] LABS: Baso # (Auto) 0.1 th/mm3 (0.0-0.2); Eos # (Auto) 0.2 th/mm3 (0.0-0.4); Eos % (Auto) 3.7 % (0.0-4.0); Hematocrit 33.6 % (39.0-51.0); Hemoglobin 10.3 gm/dL (13.0-17.0); Lymph # (Auto) 1.6 th/mm3 (1.0-4.8); Lymph % (Auto) 28.2 % (9.0-44.0); Mean Corpuscular Hemoglobin 20.5 pg (27.0-34.0); Mean Corpuscular Volume 67.3 fL (80.0-100.0); Mean Platelet Volume 8.4 fL (7.0-11.0); Neut # (Auto) 2.8 th/mm3 (1.8-7.7); Neut % (Auto) 49.1 % (16.0-70.0); Platelet Count 333 th/mm3 (150-450); Red Blood Count 4.99 mil/mm3 (4.50-5.90); Red Cell Distribution Width 27.8 % (11.6-17.2); White Blood Count 5.8 th/mm3 (4.0-11.0)
[2018-01-12 05:31] LABS: Mean Corpuscular HGB Conc 30.5 % (32.0-36.0)
[2018-01-12] MEDS: hydroCHLOROthiazide 25 MG Tablet PO SCH (08:35)
[2018-01-12] MEDS: Senna/Docusate Sodium 8.6/50 MG Tablet PO SCH ×2 (08:35→23:15)
[2018-01-12] MEDS: Finasteride 5 MG Tablet PO SCH (08:35)
[2018-01-12 09:00] LABS: Acanthocytes Occ; Ovalocytes 1+; Tear Drop Cells 1+
--- NOTE | 2018-01-12 09:43 | P.CONGI ---
History of Present Illness Consult date: 01/12/18 Chief complaint: anemia, chest pain History of Present Illness: This is 62-year-old English-speaking male with a history of hypertension, hyperlipidemia, anxiety and depression as well as a known history of anemia presented to the emergency department with complaints of dizziness and chest discomfort. Language is a barrier, most of HPI obtained from EMR. Pt has had hx of anemia for the past 10 yrs and has required blood transfusion in the past. States EGD/colonoscopy done in [facility] 8 yrs ago. Denies nausea, vomiting , abd pain, melena, hematochezia or wt loss. Labs on admission hgb 7.6, low iron indices, heme (-) stools. He is s/p 2 units of blood, hgb today is 10.3 <Nitish Villegas - Last Filed: 01/12/18 09:34> Review of Systems All other systems reviewed negative except as stated in HPI <Nitish Villegas - Last Filed: 01/12/18 09:34> PMFSH - History History Provided By: Patient - Medical History Medical History: Medical History (Last Reviewed 01/10/18 @ 13:35 by Jean Krishna MD, R2) Anemia HTN (hypertension) Hypoglycemia Murmur - Surgical History Surgical History: Surgical History (Last Reviewed 01/10/18 @ 13:35 by Jean Krishna MD, R2) History of tonsillectomy - Tobacco History Second Hand Smoke Exposure: No Smoking Status: Never smoker - Alcohol History How Often Do You Have a Drink Containing Alcohol: Never - Substance Use History Substance History: No History of Abuse - Travel History [facility] Within the Last 8 Weeks: No Recent Travel Out of the Country Within the Last 8 Weeks: No - Immunization History Tetanus Immunization: Never Vaccinated Hx Influenza Vaccine This Season: No <Nitish Villegas - Last Filed: 01/12/18 09:34> - Medical History Medical History: Medical History (Last Reviewed 01/10/18 @ 13:35 by Jean Krishna MD, R2) Anemia HTN (hypertension) Hypoglycemia Murmur - Surgical History Surgical History: Surgical History (Last Reviewed 01/10/18 @ 13:35 by Jean Krishna MD, R2) History of tonsillectomy <Lizbeth Cannon - Last Filed: 01/12/18 14:48> Medications and Allergies Active Medications: Active Medications Acetaminophen (Tylenol) 650 mg PO Q4H PRN PRN Reason: Temp > 100.4 Al Hydroxide/Mg Hydroxide (Milk Of Magnesia Liq) 30 ml PO Q12H PRN PRN Reason: Mild Constipation Bisacodyl (Dulcolax Supp) 10 mg RECTAL DAILY PRN PRN Reason: SEVERE CONSITIPATION Finasteride (Proscar) 5 mg PO DAILY [facility] Last Admin: 01/12/18 08:35 Dose: 5 mg Hydrochlorothiazide (Hydrodiuril) 25 mg PO DAILY [facility] Last Admin: 01/12/18 08:35 Dose: 25 mg Lactulose (Lactulose Liq) 30 ml PO DAILY PRN PRN Reason: SEVERE CONSITIPATION Losartan Potassium (Cozaar) 50 mg PO DAILY [facility] Last Admin: 01/12/18 08:35 Dose: 50 mg Ondansetron HCl (Zofran Inj) 4 mg IV.PUSH Q6H PRN PRN Reason: NAUSEA OR VOMITING Senna/Docusate Sodium (Cecille-Colace) 1 tab PO BID [facility] Last Admin: 01/12/18 08:35 Dose: 1 tab Sennosides (Senokot) 17.2 mg PO Q12H PRN PRN Reason: Moderate Constipation Sodium Chloride (Ns Flush) 2 ml IV.FLUSH UNSCH PRN PRN Reason: FLUSH AFTER USING IV ACCESS Last Admin: 01/10/18 21:13 Dose: 2 ml Tamsulosin HCl (Flomax) 0.4 mg PO DAILY [facility] Last Admin: 01/12/18 08:35 Dose: 0.4 mg Temazepam (Restoril) 15 mg PO HS PRN PRN Reason: INSOMNIA <Amawi,Lucilala - Last Filed: 01/12/18 09:34> Active Medications: Active Medications Acetaminophen (Tylenol) 650 mg PO Q4H PRN PRN Reason: Temp > 100.4 Al Hydroxide/Mg Hydroxide (Milk Of Magnesia Liq) 30 ml PO Q12H PRN PRN Reason: Mild Constipation Bisacodyl (Dulcolax Supp) 10 mg RECTAL DAILY PRN PRN Reason: SEVERE CONSITIPATION Finasteride (Proscar) 5 mg PO DAILY [facility] Last Admin: 01/12/18 08:35 Dose: 5 mg Hydrochlorothiazide (Hydrodiuril) 25 mg PO DAILY [facility] Last Admin: 01/12/18 08:35 Dose: 25 mg Lactulose (Lactulose Liq) 30 ml PO DAILY PRN PRN Reason: SEVERE CONSITIPATION Losartan Potassium (Cozaar) 50 mg PO DAILY [facility] Last Admin: 01/12/18 08:35 Dose: 50 mg Ondansetron HCl (Zofran Inj) 4 mg IV.PUSH Q6H PRN PRN Reason: NAUSEA OR VOMITING Polyethylene Glycol/Electrolytes (Colyte Liq) 4,000 ml PO ONCE ONE Stop: 01/12/18 16:01 Senna/Docusate Sodium (Cecille-Colace) 1 tab PO BID [facility] Last Admin: 01/12/18 08:35 Dose: 1 tab Sennosides (Senokot) 17.2 mg PO Q12H PRN PRN Reason: Moderate Constipation Sodium Chloride (Ns Flush) 2 ml IV.FLUSH UNSCH PRN PRN Reason: FLUSH AFTER USING IV ACCESS Last Admin: 01/10/18 21:13 Dose: 2 ml Tamsulosin HCl (Flomax) 0.4 mg PO DAILY [facility] Last Admin: 01/12/18 08:35 Dose: 0.4 mg Temazepam (Restoril) 15 mg PO HS PRN PRN Reason: INSOMNIA <Lizbeth Cannon - Last Filed: 01/12/18 14:48> Allergies Allergy/AdvReac Type Severity Reaction Status Date / Time No Known Allergies Allergy Unverified 01/10/18 11:16 Home Medications Medication Instructions Recorded Confirmed Type aspirin [Aspirin Low Dose] 81 mg PO DAILY 01/10/18 01/10/18 History finasteride 5 mg PO DAILY 01/10/18 01/10/18 History olmesartan-hydrochlorothiazide 1 tab PO DAILY 01/10/18 01/10/18 History [Benicar HCT] tamsulosin [Flomax] 0.4 mg PO DAILY 01/10/18 01/10/18 History Exam Vital signs: Vital Signs 01/11/18 12:00 01/11/18 16:00 01/11/18 20:00 Temperature 97.7 F 97.9 F 96.3 F L Pulse Rate 97 H 88 89 Respiratory Rate 20 20 18 Blood Pressure 116/75 110/67 117/70 Pulse Oximetry 97 98 97 01/12/18 00:00 01/12/18 04:00 01/12/18 05:48 Temperature 97.9 F 97.8 F Pulse Rate 84 76 69 Respiratory Rate 18 18 Blood Pressure 127/78 121/55 L Pulse Oximetry 98 95 Intake & Output 01/11/18 01/12/18 01/12/18 18:59 06:59 18:59 Intake Total 720 / 720 240 / 240 Balance 720 / 720 240 / 240 Weight 114.6 kg Intake: Oral 720 / 720 240 / 240 Other: # Voids 4 1 # Bowel Movements 1 0 - Constitutional no acute distress - Routine HEENT Exam Head: Present: normocephalic - Routine Neck Exam Present: supple - Routine Respiratory Exam Present: CTA bilaterally - Routine Cardiovascular Exam Present: RRR - Routine Abdominal Exam Present: soft, normoactive bowel sounds. Absent: tenderness, distended - Routine Extremities Exam Absent: cyanosis, edema - Routine Skin Exam Present: intact, dry - Routine Neurological Exam Present: alert, oriented X3 <Nitish Villegas - Last Filed: 01/12/18 09:34> Vital signs: Vital Signs 01/11/18 16:00 01/11/18 20:00 01/12/18 00:00 Temperature 97.9 F 96.3 F L 97.9 F Pulse Rate 88 89 84 Respiratory Rate 20 18 18 Blood Pressure 110/67 117/70 127/78 Pulse Oximetry 98 97 98 01/12/18 04:00 01/12/18 05:48 01/12/18 08:00 Temperature 97.8 F 97.4 F L Pulse Rate 76 69 85 Respiratory Rate 18 20 Blood Pressure 121/55 L 134/85 Pulse Oximetry 95 97 01/12/18 08:08 01/12/18 12:00 Temperature 98 F Pulse Rate 81 93 H Respiratory Rate 20 Blood Pressure 105/69 Pulse Oximetry 96 Intake & Output 01/11/18 01/12/18 01/12/18 18:59 06:59 18:59 Intake Total 720 / 720 240 / 240 Output Total 4 / 4 Balance 720 / 720 240 / 240 -4 / -4 Weight 114.6 kg Intake: Oral 720 / 720 240 / 240 Output: Urine 2 / 2 Stool 2 / 2 Other: # Voids 4 1 Date of Last Bowel Movement 01/12/18 # Bowel Movements 1 0 <Lizbeth Cannon - Last Filed: 01/12/18 14:48> Results - Labs CBC & Chem 7: 01/12/18 04:15 01/11/18 04:16 Labs: Laboratory Results - last 24 hr 01/12/18 04:15 WBC 5.8 RBC 4.99 Hgb 10.3 L Hct 33.6 L MCV 67.3 L MCH 20.5 L MCHC 30.5 L RDW 27.8 H Plt Count 333 MPV 8.4 Prelim Diff (Auto) Slide review pending Neut % (Auto) 49.1 Lymph % (Auto) 28.2 [place] % (Auto) 18.0 H Eos % (Auto) 3.7 Baso % (Auto) 1.0 Neut # (Auto) 2.8 Lymph # (Auto) 1.6 [place] # (Auto) 1.0 H Eos # (Auto) 0.2 Baso # (Auto) 0.1 WBC Differential . Diff Scan Auto diff confirmed Differential Comment . Tear Drop Cells 1+ H Ovalocytes 1+ H Acanthocytes (Spur) Occ H <JosianeirisNitish - Last Filed: 01/12/18 09:34> - Labs CBC & Chem 7: 01/12/18 04:15 01/11/18 04:16 Labs: Laboratory Results - last 24 hr 01/12/18 04:15 WBC 5.8 RBC 4.99 Hgb 10.3 L Hct 33.6 L MCV 67.3 L MCH 20.5 L MCHC 30.5 L RDW 27.8 H Plt Count 333 MPV 8.4 Prelim Diff (Auto) Slide review pending Neut % (Auto) 49.1 Lymph % (Auto) 28.2 [place] % (Auto) 18.0 H Eos % (Auto) 3.7 Baso % (Auto) 1.0 Neut # (Auto) 2.8 Lymph # (Auto) 1.6 [place] # (Auto) 1.0 H Eos # (Auto) 0.2 Baso # (Auto) 0.1 WBC Differential . Diff Scan Auto diff confirmed Differential Comment . Tear Drop Cells 1+ H Ovalocytes 1+ H Acanthocytes (Spur) Occ H <Lizbeth Cannon - Last Filed: 01/12/18 14:48> Assessment and Plan - Plan - Acute on chronic anemia- Pt has had hx of anemia for the past 10 yrs and has required blood transfusion in the past. States EGD/colonoscopy done in [facility] 8 yrs ago. Denies nausea, vomiting, abd pain, melena, hematochezia or wt loss. Labs on admission hgb 7.6, low iron indices, heme (-) stools. He is s/p 2 units of blood, hgb today is 10.3 - history of hypertension, hyperlipidemia, anxiety and depression per attending. Plan: - Clears - EGD/colonoscopy in the am - Golytely today - NPO mn - Monitor hh - Transfuse as needed - Supportive care - Pt seen and examined by Dr. Cannon and myself and this note is written on his behalf. <Nitish Villegas - Last Filed: 01/12/18 09:34> - Plan Seen and examined with [facility], egd/colonoscopy planned for tomorrow. Thank you <Lizbeth Cannon - Last Filed: 01/12/18 14:48>
--- NOTE | 2018-01-12 10:43 | P.PNFP ---
Subjective Interval history: No acute events overnight. [employer] dairy equipment specialist was used during the patient interview. Patient denies any chest pain or dizziness. States he has felt significantly better after the blood transfusion. Patient states that the GI team came and saw him this morning and is waiting for an EGD/colonoscopy tomorrow. He has any questions regarding this and denies any blood in his stool , hematemesis or nausea or vomiting. <Jean Krishna - 01/12/18 10:43> Results - Labs Result diagrams: 01/12/18 04:15 01/11/18 04:16 <Clarissa Torres - 01/12/18 12:54> Abnormal lab results 01/12/18 Range/Units 04:15 Hgb 10.3 L (13.0-17.0) gm/dL Hct 33.6 L (39.0-51.0) % MCV 67.3 L (80.0-100.0) fL MCH 20.5 L (27.0-34.0) pg MCHC 30.5 L (32.0-36.0) % RDW 27.8 H (11.6-17.2) % [place] % (Auto) 18.0 H (0.0-8.0) % [place] # (Auto) 1.0 H (0.0-0.9) th/mm3 Tear Drop Cells 1+ H (None) Ovalocytes 1+ H (None) Acanthocytes (Spur) Occ H (None) Short CBC 01/12/18 Range/Units 04:15 WBC 5.8 (4.0-11.0) th/mm3 Hgb 10.3 L (13.0-17.0) gm/dL Hct 33.6 L (39.0-51.0) % Plt Count 333 (150-450) th/mm3 <Clarissa Torres - 01/12/18 12:54> Abnormal lab results 01/12/18 Range/Units 04:15 Hgb 10.3 L (13.0-17.0) gm/dL Hct 33.6 L (39.0-51.0) % MCV 67.3 L (80.0-100.0) fL MCH 20.5 L (27.0-34.0) pg MCHC 30.5 L (32.0-36.0) % RDW 27.8 H (11.6-17.2) % [place] % (Auto) 18.0 H (0.0-8.0) % [place] # (Auto) 1.0 H (0.0-0.9) th/mm3 Tear Drop Cells 1+ H (None) Ovalocytes 1+ H (None) Acanthocytes (Spur) Occ H (None) Short CBC 01/12/18 Range/Units 04:15 WBC 5.8 (4.0-11.0) th/mm3 Hgb 10.3 L (13.0-17.0) gm/dL Hct 33.6 L (39.0-51.0) % Plt Count 333 (150-450) th/mm3 <Jean Krishna - 01/12/18 10:43> Physical Exam Vital signs: Vital Signs 01/11/18 16:00 01/11/18 20:00 01/12/18 00:00 Temperature 97.9 F 96.3 F L 97.9 F Pulse Rate 88 89 84 Respiratory Rate 20 18 18 Blood Pressure 110/67 117/70 127/78 Pulse Oximetry 98 97 98 01/12/18 04:00 01/12/18 05:48 01/12/18 08:00 Temperature 97.8 F 97.4 F L Pulse Rate 76 69 85 Respiratory Rate 18 20 Blood Pressure 121/55 L 134/85 Pulse Oximetry 95 97 01/12/18 08:08 01/12/18 12:00 Temperature 98 F Pulse Rate 81 93 H Respiratory Rate 20 Blood Pressure 105/69 Pulse Oximetry 96 Intake & Output 01/11/18 01/12/18 01/12/18 18:59 06:59 18:59 Intake Total 720 / 720 240 / 240 Output Total 4 / 4 Balance 720 / 720 240 / 240 -4 / -4 Weight 114.6 kg Intake: Oral 720 / 720 240 / 240 Output: Urine 2 / 2 Stool 2 / 2 Other: # Voids 4 1 Date of Last Bowel Movement 01/12/18 # Bowel Movements 1 0 <Clarissa Torres - 01/12/18 12:54> Vital Signs 01/11/18 12:00 01/11/18 16:00 01/11/18 20:00 Temperature 97.7 F 97.9 F 96.3 F L Pulse Rate 97 H 88 89 Respiratory Rate 20 20 18 Blood Pressure 116/75 110/67 117/70 Pulse Oximetry 97 98 97 01/12/18 00:00 01/12/18 04:00 01/12/18 05:48 Temperature 97.9 F 97.8 F Pulse Rate 84 76 69 Respiratory Rate 18 18 Blood Pressure 127/78 121/55 L Pulse Oximetry 98 95 01/12/18 08:00 01/12/18 08:08 Temperature 97.4 F L Pulse Rate 85 81 Respiratory Rate 20 Blood Pressure 134/85 Pulse Oximetry 97 Intake & Output 01/11/18 01/12/18 01/12/18 18:59 06:59 18:59 Intake Total 720 / 720 240 / 240 Output Total 2 / 2 Balance 720 / 720 240 / 240 -2 / -2 Weight 114.6 kg Intake: Oral 720 / 720 240 / 240 Output: Urine Stool Other: # Voids 4 1 Date of Last Bowel Movement 01/12/18 # Bowel Movements 1 0 <Jean Krishna - 01/12/18 10:43> Narrative: GENERAL: Well-developed well-nourished pleasant male sitting upright in chair in no acute distress. Kazakh-speaking only. SKIN: Warm and dry. HEAD: Atraumatic. Normocephalic. EYES: Pupils equal and round. No scleral icterus. ENT: No nasal bleeding or discharge. MMM NECK: Trachea midline. No JVD. CARDIOVASCULAR: Regular rate and rhythm. RESPIRATORY: No accessory muscle use. Clear to auscultation. Breath sounds equal bilaterally. GASTROINTESTINAL: Abdomen soft, non-tender, nondistended. Hepatic and splenic margins not palpable. MUSCULOSKELETAL: Extremities without clubbing, cyanosis. Trace 1+ pitting edema distal to the midshin bilaterally. No obvious deformities. NEUROLOGICAL: Awake and alert. No obvious cranial nerve deficits. Motor grossly within normal limits. Five out of 5 muscle strength in the arms and legs. Normal speech. PSYCHIATRIC: Appropriate mood and affect; insight and judgment normal. <Jean Krishna - 01/12/18 10:43> Assessment and Plan - Assessment (1) Anemia Code(s): D64.9 - Anemia, unspecified Status: Acute (2) Chest pain Code(s): R07.9 - Chest pain, unspecified Status: Acute (3) Dizziness Code(s): R42 - Dizziness and giddiness Status: Acute (4) HTN (hypertension) Code(s): I10 - Essential (primary) hypertension Status: Acute (5) BPH (benign prostatic hyperplasia) Code(s): N40.0 - Benign prostatic hyperplasia without lower urinary tract symptoms Status: Acute (6) Nutrition, metabolism, and development symptoms Code(s): R63.8 - Other symptoms and signs concerning food and fluid intake Status: Acute <Clarissa Torres - 01/12/18 12:54> (1) Anemia Code(s): D64.9 - Anemia, unspecified Status: Acute Plan: Patient with a reported history of anemia. Patient states that it was a "production problem" States he has taken supplemental iron and vitamin B12 Has required 3 prior blood transfusions over the last 10 years H&H of 7.6/25.8, MCV 60.8 on admission RDW 22 Normal WBC, platelet counts Renal function normal on admission Transfused 2 units with an appropriate response in H&H. Iron studies with low iron, high TIBC and low ferritin. Reticulocyte count elevated. Vitamin B12 and folate are both elevated Fecal occult blood negative considered GI versus hematology consult pending initial workup. Initially our understanding was that he had had a recent colonoscopy though we would not probably be able to get the results as it was done in [place] however on further discussion today he did not have any testing done and was told improved that he requires endoscopy and colonoscopy -GI consulted on 01/12, plan for EGD/colonoscopy tomorrow (2) Chest pain Code(s): R07.9 - Chest pain, unspecified Status: Acute Plan: 1 week history of substernal chest discomfort on exertion ACS workup negative Discontinuing telemetry on 01/12 Posttransfusion he has no pain is able to ambulate and is completely asymptomatic. (3) Dizziness Code(s): R42 - Dizziness and giddiness Status: Acute Plan: Several month history of occasional dizziness/lightheadedness A known history of anemia No falls or injuries See workup as above -Resolved (4) HTN (hypertension) Code(s): I10 - Essential (primary) hypertension Status: Acute Plan: Known history of hypertension Takes Benicar HCT daily, will continue home medication (5) BPH (benign prostatic hyperplasia) Code(s): N40.0 - Benign prostatic hyperplasia without lower urinary tract symptoms Status: Acute Plan: Known history of BPH Takes tamsulosin and finasteride daily Will continue his home medications (6) Nutrition, metabolism, and development symptoms Code(s): R63.8 - Other symptoms and signs concerning food and fluid intake Status: Acute Plan: No IV fluids at this time Regular diet, n.p.o. at midnight SCDs for DVT prophylaxis for now <Jean Krishna - 01/12/18 10:35> - Assessment and Plan 62-year-old male with history of hypertension, BPH, HLD and a known history of anemia presenting to the ED with dizziness and chest discomfort. Found to be anemic on admission and will be transfused 2 units of PRBCs. ACS was ruled out and symptoms resolved after transfusion. Consult GI and planning for EGD/ colonoscopy on 01/[address] Torres <Jean Krishna - 01/12/18 10:43> - Attending Attestation The exam, history, and the medical decision-making described in the above note were completed with the assistance of the resident physician. I reviewed and agree with the findings presented. I attest that I had a [id number] encounter with the patient on the same day, and personally performed and documented my assessment and findings in the medical record. he is doing well. will see what his scopes show <Clarissa Torres M - 01/12/18 12:54> <Jean Krishna - Last Filed: 01/12/18 10:35> (1) Anemia Qualifiers: Anemia type: iron deficiency Iron deficiency anemia type: unspecified iron deficiency Qualified Code(s): D50.9 - Iron deficiency anemia, unspecified (2) Chest pain Qualifiers: Chest pain type: unspecified Qualified Code(s): R07.9 - Chest pain, unspecified (4) HTN (hypertension) Qualifiers: Hypertension type: essential hypertension Qualified Code(s): I10 - Essential (primary) hypertension (5) BPH (benign prostatic hyperplasia) Qualifiers: Lower urinary tract symptom presence: symptoms present Lower urinary tract symptom detail: unspecified Qualified Code(s): N40.1 - Benign prostatic hyperplasia with lower urinary tract symptoms <Clarissa Torres - Last Filed: 01/12/18 12:54> (1) Anemia Qualifiers: Anemia type: iron deficiency Iron deficiency anemia type: unspecified iron deficiency Qualified Code(s): D50.9 - Iron deficiency anemia, unspecified (2) Chest pain Qualifiers: Chest pain type: unspecified Qualified Code(s): R07.9 - Chest pain, unspecified (4) HTN (hypertension) Qualifiers: Hypertension type: essential hypertension Qualified Code(s): I10 - Essential (primary) hypertension (5) BPH (benign prostatic hyperplasia) Qualifiers: Lower urinary tract symptom presence: symptoms present Lower urinary tract symptom detail: unspecified Qualified Code(s): N40.1 - Benign prostatic hyperplasia with lower urinary tract symptoms <Jean Krishna - Last Filed: 01/12/18 10:35> (1) Anemia Qualifiers: Anemia type: iron deficiency Iron deficiency anemia type: unspecified iron deficiency Qualified Code(s): D50.9 - Iron deficiency anemia, unspecified (2) Chest pain Qualifiers: Chest pain type: unspecified Qualified Code(s): R07.9 - Chest pain, unspecified (4) HTN (hypertension) Qualifiers: Hypertension type: essential hypertension Qualified Code(s): I10 - Essential (primary) hypertension (5) BPH (benign prostatic hyperplasia) Qualifiers: Lower urinary tract symptom presence: symptoms present Lower urinary tract symptom detail: unspecified Qualified Code(s): N40.1 - Benign prostatic hyperplasia with lower urinary tract symptoms <Clarissa Torres - Last Filed: 01/12/18 12:54> (1) Anemia Qualifiers: Anemia type: iron deficiency Iron deficiency anemia type: unspecified iron deficiency Qualified Code(s): D50.9 - Iron deficiency anemia, unspecified (2) Chest pain Qualifiers: Chest pain type: unspecified Qualified Code(s): R07.9 - Chest pain, unspecified (4) HTN (hypertension) Qualifiers: Hypertension type: essential hypertension Qualified Code(s): I10 - Essential (primary) hypertension (5) BPH (benign prostatic hyperplasia) Qualifiers: Lower urinary tract symptom presence: symptoms present Lower urinary tract symptom detail: unspecified Qualified Code(s): N40.1 - Benign prostatic hyperplasia with lower urinary tract symptoms
[2018-01-12] MEDS ORDERED: PEG 3350/E-Lyte Soln 4000 ML Bottle PO ONE (16:00)
[2018-01-13] MEDS ORDERED: Chlorhexidine Gluconate 2% 1 Pack (2 Cloths) TOPICAL SCH ×2 (04:30→09:00)
[2018-01-13] MEDS ORDERED: Sodium Chlor 0.9% Inj 500 ML IV.SIG SCH ×2 (05:00→09:00)
[2018-01-13 06:48] LABS: Baso # (Auto) 0.1 th/mm3 (0.0-0.2); Eos # (Auto) 0.2 th/mm3 (0.0-0.4); Eos % (Auto) 3.7 % (0.0-4.0); Hematocrit 33.6 % (39.0-51.0); Hemoglobin 10.4 gm/dL (13.0-17.0); Lymph # (Auto) 1.5 th/mm3 (1.0-4.8); Lymph % (Auto) 30.1 % (9.0-44.0); Mean Corpuscular HGB Conc 31.1 % (32.0-36.0); Mean Corpuscular Hemoglobin 20.7 pg (27.0-34.0); Mean Corpuscular Volume 66.6 fL (80.0-100.0); Mean Platelet Volume 8.4 fL (7.0-11.0); Mono # (Auto) 0.8 th/mm3 (0.0-0.9); Mono % (Auto) 17.2 % (0.0-8.0); Neut # (Auto) 2.3 th/mm3 (1.8-7.7); Platelet Count 330 th/mm3 (150-450); Red Blood Count 5.05 mil/mm3 (4.50-5.90); Red Cell Distribution Width 28.3 % (11.6-17.2); White Blood Count 4.9 th/mm3 (4.0-11.0)
[2018-01-13 07:05] LABS: Anion Gap 13 meq/L (5-15); Blood Urea Nitrogen 9 mg/dL (7-18); Calcium 8.5 mg/dL (8.5-10.1); Carbon Dioxide 25.4 meq/L (21.0-32.0); Chloride 106 meq/L (98-107); Glomerular Filtration Rate Greater Than 89 mL/min (>89); Glucose,Random 91 mg/dL (74-106); Potassium 3.5 meq/L (3.5-5.1); Sodium 144 meq/L (136-145)
[2018-01-13 08:07] LABS: Eosinophils 3 % (0-4); Monocytes 14 % (0-8); Promyelocyte 1 % (0-0)
[2018-01-13 08:08] LABS: Dimorphic RBC Present; Lymphocytes 23 % (9-44)
[2018-01-13 08:09] LABS: Ovalocytes 1+; Platelet Estimate Normal (Normal); Platelet Morphology Normal (Normal); Tear Drop Cells 1+
[2018-01-13] MEDS ORDERED: Metoprolol Tartrate 25 MG Tablet PO SCH (09:00)
--- NOTE | 2018-01-13 10:53 | P.PNFP ---
Subjective Interval history: Stratus restrictive preparation operator use. Patient has no complaints today. Denies any pain, lightheadedness, headache, shortness of breath, or chest pain. Patient n.p.o. for GI procedures today. Follow-up at [facility] was discussed. Patient plan to retract his family about possible discharge today depending on results of GI procedure. Patient completed body scrub cleaning before GI procedure. <Sita Polanco - 01/13/18 10:52> Results - Labs Result diagrams: 01/14/18 03:39 01/14/18 03:39 <Clarissa Torres - 01/14/18 17:16> Abnormal lab results 01/14/18 01/14/18 Range/Units 03:39 03:39 Hgb 10.1 L (13.0-17.0) gm/dL Hct 32.2 L (39.0-51.0) % MCV 65.8 L (80.0-100.0) fL MCH 20.6 L (27.0-34.0) pg MCHC 31.4 L (32.0-36.0) % RDW 28.2 H (11.6-17.2) % [place] % (Auto) 17.2 H (0.0-8.0) % Dimorphic RBCs Present H (None) Ovalocytes 1+ H (None) Potassium 3.4 L (3.5-5.1) meq/L Short CBC 01/14/18 Range/Units 03:39 WBC 4.7 (4.0-11.0) th/mm3 Hgb 10.1 L (13.0-17.0) gm/dL Hct 32.2 L (39.0-51.0) % Plt Count 310 (150-450) th/mm3 [facility] 01/14/18 03:39 Sodium 142 Potassium 3.4 L Chloride 106 Carbon Dioxide 27.1 BUN 9 Creatinine 0.76 Calcium 8.6 <Clarissa Torres - 01/14/18 17:16> Abnormal lab results 01/13/18 Range/Units 05:33 Hgb 10.4 L (13.0-17.0) gm/dL Hct 33.6 L (39.0-51.0) % MCV 66.6 L (80.0-100.0) fL MCH 20.7 L (27.0-34.0) pg MCHC 31.1 L (32.0-36.0) % RDW 28.3 H (11.6-17.2) % [place] % (Auto) 17.2 H (0.0-8.0) % Monocytes % (Manual) 14 H (0-8) % Promyelocytes % (Man) 1 H (0-0) % Dimorphic RBCs Present H (None) Tear Drop Cells 1+ H (None) Ovalocytes 1+ H (None) Short CBC 01/13/18 Range/Units 05:33 WBC 4.9 (4.0-11.0) th/mm3 Hgb 10.4 L (13.0-17.0) gm/dL Hct 33.6 L (39.0-51.0) % Plt Count 330 (150-450) th/mm3 BMP 01/13/18 05:33 Sodium 144 Potassium 3.5 Chloride 106 Carbon Dioxide 25.4 BUN 9 Creatinine 0.80 Calcium 8.5 <Sita Polanco - 01/13/18 10:52> - Imaging Impressions Upper GI and Small Bowel X-Ray 01/14/18 00:00 CONCLUSION: Colonic diverticulosis. Large hiatal hernia. Duodenal diverticulum. <Clarissa Torres - 01/14/18 17:16> Physical Exam Vital signs: Vital Signs 01/13/18 20:00 01/14/18 00:00 01/14/18 04:00 Temperature 98.3 F 98.3 F 98 F Pulse Rate 80 84 85 Respiratory Rate 15 14 16 Blood Pressure 130/82 122/92 H 126/81 Pulse Oximetry 96 96 94 L 01/14/18 08:00 Temperature 97.3 F L Pulse Rate 75 Respiratory Rate 20 Blood Pressure 103/62 Pulse Oximetry 98 Intake & Output 01/13/18 01/14/18 01/14/18 18:59 06:59 18:59 Intake Total 1300 / 1300 240 / 240 Balance 1300 / 1300 240 / 240 Weight 111.7 kg Intake: IV 650 / 650 LR 1000 mL Inj 1,000 ML @ 30 650 / 650 mls/hr IV.SIG .Q24H NEELAM Rx#: [id number] Oral 240 / 240 Anesthesia Amount 650 / 650 Other: # Voids 3 # Bowel Movements 1 <Clarissa Torres - 01/14/18 17:16> Vital Signs 01/12/18 12:00 01/12/18 16:00 01/12/18 20:00 Temperature 98 F 97.6 F 97.5 F L Pulse Rate 93 H 76 66 Respiratory Rate 20 20 19 Blood Pressure 105/69 127/75 141/90 H Pulse Oximetry 96 96 97 01/13/18 00:00 01/13/18 04:00 01/13/18 08:00 Temperature 97.5 F L 98 F 97.5 F L Pulse Rate 64 75 78 Respiratory Rate 17 17 20 Blood Pressure 148/82 H 103/65 122/81 Pulse Oximetry 97 96 98 Intake & Output 01/12/18 01/13/18 01/13/18 18:59 06:59 18:59 Output Total 4 / 4 Balance -4 / -4 Weight 112.9 kg Output: Urine 2 / 2 Stool 2 / 2 Other: # Voids 2 Date of Last Bowel Movement 01/12/18 # Incontinent Bowel Movements 2 <Sita Polanco - 01/13/18 10:52> Narrative: GENERAL: Well-developed well-nourished pleasant male sitting upright in chair in no acute distress. Amharic-speaking only. SKIN: Warm and dry. HEAD: Atraumatic. Normocephalic. EYES: Pupils equal and round. No scleral icterus. ENT: No nasal bleeding or discharge. MMM NECK: Trachea midline. No JVD. CARDIOVASCULAR: Regular rate and rhythm. RESPIRATORY: No accessory muscle use. Clear to auscultation. Breath sounds equal bilaterally. GASTROINTESTINAL: Abdomen soft, non-tender, nondistended. Hepatic and splenic margins not palpable. MUSCULOSKELETAL: Extremities without clubbing, cyanosis. Trace 1+ pitting edema distal to the midshin bilaterally. No obvious deformities. NEUROLOGICAL: Awake and alert. No obvious cranial nerve deficits. Motor grossly within normal limits. Five out of 5 muscle strength in the arms and legs. Normal speech. PSYCHIATRIC: Appropriate mood and affect; insight and judgment normal. <Sita Polanco - 01/13/18 10:52> Assessment and Plan - Assessment (1) Anemia Code(s): D64.9 - Anemia, unspecified Status: Acute (2) Chest pain Code(s): R07.9 - Chest pain, unspecified Status: Acute (3) Dizziness Code(s): R42 - Dizziness and giddiness Status: Acute (4) HTN (hypertension) Code(s): I10 - Essential (primary) hypertension Status: Acute (5) BPH (benign prostatic hyperplasia) Code(s): N40.0 - Benign prostatic hyperplasia without lower urinary tract symptoms Status: Acute (6) Nutrition, metabolism, and development symptoms Code(s): R63.8 - Other symptoms and signs concerning food and fluid intake Status: Acute <Clarissa Torres - 01/14/18 17:16> (1) Anemia Code(s): D64.9 - Anemia, unspecified Status: Acute Plan: Patient with a reported history of anemia. Patient states that it was a "production problem" States he has taken supplemental iron and vitamin B12 Has required 3 prior blood transfusions over the last 10 years H&H of 7.6/25.8, MCV 60.8 on admission RDW 22 Normal WBC, platelet counts Renal function normal on admission Transfused 2 units with an appropriate response in H&H. Iron studies with low iron, high TIBC and low ferritin. Reticulocyte count elevated. Vitamin B12 and folate are both elevated Fecal occult blood negative considered GI versus hematology consult pending initial workup. Initially our understanding was that he had had a recent colonoscopy though we would not probably be able to get the results as it was done in [place] however on further discussion today he did not have any testing done and was told improved that he requires endoscopy and colonoscopy -GI consulted on 01/12, EGD/colonoscopy today (2) Chest pain Code(s): R07.9 - Chest pain, unspecified Status: Acute Plan: 1 week history of substernal chest discomfort on exertion ACS workup negative Discontinuing telemetry on 01/12 Posttransfusion he has no pain is able to ambulate and is completely asymptomatic. (3) Dizziness Code(s): R42 - Dizziness and giddiness Status: Acute Plan: Several month history of occasional dizziness/lightheadedness A known history of anemia No falls or injuries See workup as above -Resolved (4) HTN (hypertension) Code(s): I10 - Essential (primary) hypertension Status: Acute Plan: Known history of hypertension Takes Benicar HCT daily, will continue home medication (5) BPH (benign prostatic hyperplasia) Code(s): N40.0 - Benign prostatic hyperplasia without lower urinary tract symptoms Status: Acute Plan: Known history of BPH Takes tamsulosin and finasteride daily Will continue his home medications (6) Nutrition, metabolism, and development symptoms Code(s): R63.8 - Other symptoms and signs concerning food and fluid intake Status: Acute Plan: No IV fluids at this time NPO until after procedure SCDs for DVT prophylaxis for now <Sita Polanco - 01/13/18 10:48> - Assessment and Plan 62-year-old male with history of hypertension, BPH, HLD and a known history of anemia presenting to the ED with dizziness and chest discomfort. Found to be anemic on admission and will be transfused 2 units of PRBCs. ACS was ruled out and symptoms resolved after transfusion. Consult GI and EGD/colonoscopy on 01/13 Disposition: Home today or tomorrow depending on results of GI procedure with follow-up at [facility] and outpatient with GI Discussed with Dr. Torres <Sita Polanco - 01/13/18 10:52> - Attending Attestation The exam, history, and the medical decision-making described in the above note were completed with the assistance of the resident physician. I reviewed and agree with the findings presented. I attest that I had a [id number] encounter with the patient on the same day, and personally performed and documented my assessment and findings in the medical record. He is doing well and should be able to have a GI evaluation to be sure he is not bleeding. After that he will be set up with her regular primary care doctor and if he continues to have any other problems at that point particularly they could consider sending him to a comber setter if needed. <Clarissa Torres - 01/14/18 17:16> <Sita Polanco - Last Filed: 01/13/18 10:48> (1) Anemia Qualifiers: Anemia type: iron deficiency Iron deficiency anemia type: unspecified iron deficiency Qualified Code(s): D50.9 - Iron deficiency anemia, unspecified (2) Chest pain Qualifiers: Chest pain type: unspecified Qualified Code(s): R07.9 - Chest pain, unspecified (4) HTN (hypertension) Qualifiers: Hypertension type: essential hypertension Qualified Code(s): I10 - Essential (primary) hypertension (5) BPH (benign prostatic hyperplasia) Qualifiers: Lower urinary tract symptom presence: symptoms present Lower urinary tract symptom detail: unspecified Qualified Code(s): N40.1 - Benign prostatic hyperplasia with lower urinary tract symptoms <Clarissa Torres - Last Filed: 01/14/18 17:16> (1) Anemia Qualifiers: Anemia type: iron deficiency Iron deficiency anemia type: unspecified iron deficiency Qualified Code(s): D50.9 - Iron deficiency anemia, unspecified (2) Chest pain Qualifiers: Chest pain type: unspecified Qualified Code(s): R07.9 - Chest pain, unspecified (4) HTN (hypertension) Qualifiers: Hypertension type: essential hypertension Qualified Code(s): I10 - Essential (primary) hypertension (5) BPH (benign prostatic hyperplasia) Qualifiers: Lower urinary tract symptom presence: symptoms present Lower urinary tract symptom detail: unspecified Qualified Code(s): N40.1 - Benign prostatic hyperplasia with lower urinary tract symptoms <Sita Polanco - Last Filed: 01/13/18 10:48> (1) Anemia Qualifiers: Anemia type: iron deficiency Iron deficiency anemia type: unspecified iron deficiency Qualified Code(s): D50.9 - Iron deficiency anemia, unspecified (2) Chest pain Qualifiers: Chest pain type: unspecified Qualified Code(s): R07.9 - Chest pain, unspecified (4) HTN (hypertension) Qualifiers: Hypertension type: essential hypertension Qualified Code(s): I10 - Essential (primary) hypertension (5) BPH (benign prostatic hyperplasia) Qualifiers: Lower urinary tract symptom presence: symptoms present Lower urinary tract symptom detail: unspecified Qualified Code(s): N40.1 - Benign prostatic hyperplasia with lower urinary tract symptoms <Clarissa Torres - Last Filed: 01/14/18 17:16> (1) Anemia Qualifiers: Anemia type: iron deficiency Iron deficiency anemia type: unspecified iron deficiency Qualified Code(s): D50.9 - Iron deficiency anemia, unspecified (2) Chest pain Qualifiers: Chest pain type: unspecified Qualified Code(s): R07.9 - Chest pain, unspecified (4) HTN (hypertension) Qualifiers: Hypertension type: essential hypertension Qualified Code(s): I10 - Essential (primary) hypertension (5) BPH (benign prostatic hyperplasia) Qualifiers: Lower urinary tract symptom presence: symptoms present Lower urinary tract symptom detail: unspecified Qualified Code(s): N40.1 - Benign prostatic hyperplasia with lower urinary tract symptoms
--- NOTE | 2018-01-13 15:11 | GIPROC ---
[facility] [address] [facility]. [facility], [address] COLONOSCOPY PROCEDURE REPORT EXAM DATE: 01/13/2018 PATIENT NAME: Esteban Marin MR #: [id number] BIRTHDATE: 1955 ENDOSCOPIST: Lizbeth Cannon MD ORDER #: [id number] MOLDER [employer]PETS: Bernice Celestin RN STATUS: inpatient INDICATIONS: The patient is a 62 yr old male here for a colonoscopy due to iron deficiency anemia PROCEDURE PERFORMED: Colonoscopy, diagnostic MEDICATIONS: None and Per Anesthesia. PREP QUALITY: The [place] Bowel Prep Score was Right colon 3, Mid colon 2, and Left colon 3. Total = 8. PREP TYPE:Go[place]ely ESTIMATED BLOOD LOSS: None CONSENT: The patient understands the risks and benefits of the procedure and understands that these risks include, but are not limited to: sedation, allergic reaction, infection, perforation and/or bleeding. Alternative means of evaluation and treatment include, among others: physical exam, x-rays, and/or surgical intervention. The patient elects to proceed with this endoscopic procedure. medical equipment was checked for proper function. Hand hygiene and appropriate measures for infection prevention was taken. After the risks, benefits and alternatives of the procedure were thoroughly explained, Informed consent was verified, confirmed and timeout was successfully executed by the treatment team. A digital exam revealed external hemorrhoids The Pentax EC-[id number] endoscope was introduced through the anus and advanced to the cecum, which was identified by both the appendix and ileocecal valve. The instrument was then slowly withdrawn as the colon was fully examined. COLON FINDINGS: Moderate diverticulosis was noted throughout the entire examined colon. No bleeding was noted from the diverticulosis. Retroflexed views revealed internal hemorrhoids and Retroflexed views revealed large internal hemorrhoids The scope was then completely withdrawn from the patient and the procedure terminated. PROCEDURE WITHDRAWAL TIME:6minutes ADVERSE EVENTS: There were no complications. IMPRESSIONS: 1. Moderate diverticulosis was noted throughout the entire examined colon 2. Retroflexed views revealed internal hemorrhoids 3. Retroflexed views revealed large internal hemorrhoids 4. Revealed external hemorrhoids RECOMMENDATIONS: 1. Benefiber 2 tsp daily 2. Continue surveillance 3. Yearly hemoccult 4. High fiber diet 5. No seeds, nuts and popcorn in diet 6. Xray for Small bowel follow through RECALL: Return 10 years Colonoscopy Lizbeth Cannon MD eSigned: Lizbeth Cannon MD 01/13/2018 2:09 PM cc: PATIENT NAME: Esteban Marin Enrique MR#: [id number]
--- NOTE | 2018-01-13 15:11 | GIPROC ---
[facility] [address] [facility]. [facility], [address] EGD PROCEDURE REPORT EXAM DATE: 01/13/2018 PATIENT NAME: Esteban Marin MR #: [id number] BIRTHDATE: 1955 ATTENDING: Lizbeth Cannon MD ORDER #: [id number] DRAW OFF WORKER: Bernice Celestin and Kaylynn Riggs STATUS: inpatient INDICATIONS: The patient is a 62 yr old male here for an EGD due to iron deficiency anemia PROCEDURE PERFORMED: EGD w/ biopsy MEDICATIONS: None and Per Anesthesia. TOPICAL ANESTHETIC: CONSENT: The patient understands the risks and benefits of the procedure and understands that these risks include, but are not limited to: sedation, allergic reaction, infection, perforation and/or bleeding. Alternative means of evaluation and treatment include, among others: physical exam, x-rays, and/or surgical intervention. The patient elects to proceed with this endoscopic procedure. medical equipment was checked for proper function. Hand hygiene and appropriate measures for infection prevention was taken. After the risks, benefits and alternatives of the procedure were thoroughly explained, Informed consent was verified, confirmed and timeout was successfully executed by the treatment team. The patient was anesthetized with topical anesthesia and the EC-3490Li (Pedi C) endoscope was introduced through the mouth and advanced to the second portion of the duodenum. Retroflexed views revealed a hiatal hernia The gastroscope was then slowly withdrawn and removed. ESOPHAGUS: The mucosa of the esophagus appeared normal. STOMACH: There was erythematous moderate gastritis in the gastric antrum. A biopsy was performed using cold forceps. Sample sent for histology. DUODENUM: The duodenal mucosa appeared normal in the bulb and second portion of the duodenum. ADVERSE EVENTS: There were no complications. IMPRESSIONS: 1. The esophagus appeared normal 2. There was erythematous gastritis in the gastric antrum; biopsy was performed 3. Normal duodenal mucosa in the bulb and second portion of the duodenum 4. Retroflexed views revealed a hiatal hernia RECOMMENDATIONS: 1. Await biopsy results. Biopsy results will not be ready for 7-10 days. If you don't hear from us in two weeks, call our office for biopsy results. 2. Anti-reflux regimen 3. Continue PPI PATIENT CONDITION: stable DISPOSITION: Inpatient REPEAT EXAM: Return 3 years EGD pending biopsy results Lizbeth Cannon MD eSigned: Lizbeth Cannon MD 01/13/2018 1:59 PM cc: PATIENT NAME: Esteban Marin Enrique MR#: [id number]
[2018-01-13] MEDS: hydroCHLOROthiazide 25 MG Tablet PO SCH (17:24)
[2018-01-13] MEDS: Finasteride 5 MG Tablet PO SCH (17:24)
[2018-01-13] MEDS: Senna/Docusate Sodium 8.6/50 MG Tablet PO SCH ×2 (17:25→20:43)
[2018-01-14 05:56] LABS: Eos # (Auto) 0.2 th/mm3 (0.0-0.4); Eos % (Auto) 3.7 % (0.0-4.0); Hematocrit 32.2 % (39.0-51.0); Hemoglobin 10.1 gm/dL (13.0-17.0); Lymph # (Auto) 1.4 th/mm3 (1.0-4.8); Lymph % (Auto) 29.4 % (9.0-44.0); Mean Corpuscular HGB Conc 31.4 % (32.0-36.0); Mean Corpuscular Hemoglobin 20.6 pg (27.0-34.0); Mean Corpuscular Volume 65.8 fL (80.0-100.0); Mean Platelet Volume 8.3 fL (7.0-11.0); Mono # (Auto) 0.8 th/mm3 (0.0-0.9); Mono % (Auto) 17.2 % (0.0-8.0); Neut # (Auto) 2.3 th/mm3 (1.8-7.7); Neut % (Auto) 48.7 % (16.0-70.0); Platelet Count 310 th/mm3 (150-450); Red Cell Distribution Width 28.2 % (11.6-17.2); White Blood Count 4.7 th/mm3 (4.0-11.0)
[2018-01-14 06:22] LABS: Anion Gap 9 meq/L (5-15); Blood Urea Nitrogen 9 mg/dL (7-18); Calcium 8.6 mg/dL (8.5-10.1); Carbon Dioxide 27.1 meq/L (21.0-32.0); Chloride 106 meq/L (98-107); Glomerular Filtration Rate Greater Than 89 mL/min (>89); Glucose,Random 85 mg/dL (74-106); Potassium 3.4 meq/L (3.5-5.1); Sodium 142 meq/L (136-145)
[2018-01-14 06:59] LABS: Dimorphic RBC Present; Ovalocytes 1+; Platelet Estimate Normal (Normal); Platelet Morphology Normal (Normal)
[2018-01-14] MEDS: Finasteride 5 MG Tablet PO SCH (08:39)
[2018-01-14] MEDS: hydroCHLOROthiazide 25 MG Tablet PO SCH (08:39)
--- NOTE | 2018-01-14 09:01 | P.PNFP ---
Subjective Interval history: No acute events overnight. Patient tolerated his EGD and colonoscopy yesterday with no complications. GI planning for a upper GI series today. Stratus second operator was used during the interview. He denies any hematemesis, blood in stool, chest pain or dizziness. States he feels well. Results - Labs Result diagrams: 01/14/18 03:39 01/14/18 03:39 Abnormal lab results 01/14/18 01/14/18 Range/Units 03:39 03:39 Hgb 10.1 L (13.0-17.0) gm/dL Hct 32.2 L (39.0-51.0) % MCV 65.8 L (80.0-100.0) fL MCH 20.6 L (27.0-34.0) pg MCHC 31.4 L (32.0-36.0) % RDW 28.2 H (11.6-17.2) % [place] % (Auto) 17.2 H (0.0-8.0) % Dimorphic RBCs Present H (None) Ovalocytes 1+ H (None) Potassium 3.4 L (3.5-5.1) meq/L Short CBC 01/14/18 Range/Units 03:39 WBC 4.7 (4.0-11.0) th/mm3 Hgb 10.1 L (13.0-17.0) gm/dL Hct 32.2 L (39.0-51.0) % Plt Count 310 (150-450) th/mm3 BMP 01/14/18 03:39 Sodium 142 Potassium 3.4 L Chloride 106 Carbon Dioxide 27.1 BUN 9 Creatinine 0.76 Calcium 8.6 Physical Exam Vital signs: Vital Signs 01/13/18 12:00 01/13/18 14:18 01/13/18 14:31 Temperature 97.4 F L 97.8 F Pulse Rate 58 L 77 74 Respiratory Rate 20 20 Blood Pressure 136/74 118/76 112/75 Pulse Oximetry 95 95 96 01/13/18 20:00 01/14/18 00:00 01/14/18 04:00 Temperature 98.3 F 98.3 F 98 F Pulse Rate 80 84 85 Respiratory Rate 15 14 16 Blood Pressure 130/82 122/92 H 126/81 Pulse Oximetry 96 96 94 L Intake & Output 08/01/14/18 01/14/18 18:59 06:59 18:59 Intake Total 1300 / 1300 240 / 240 Balance 1300 / 1300 240 / 240 Weight 111.7 kg Intake: IV 650 / 650 LR 1000 mL Inj 1,000 ML @ 30 650 / 650 mls/hr IV.SIG .Q24H NEELAM Rx#: [id number] Oral 240 / 240 Anesthesia Amount 650 / 650 Other: # Voids 3 # Bowel Movements 1 Assessment and Plan - Assessment (1) Anemia Code(s): D64.9 - Anemia, unspecified Status: Acute Plan: Patient with a reported history of anemia. Patient states that it was a "production problem" States he has taken supplemental iron and vitamin B12 Has required 3 prior blood transfusions over the last 10 years H&H of 7.6/25.8, MCV 60.8 on admission RDW 22 Normal WBC, platelet counts Renal function normal on admission Transfused 2 units with an appropriate response in H&H. Iron studies with low iron, high TIBC and low ferritin. Reticulocyte count elevated. Vitamin B12 and folate are both elevated Fecal occult blood negative considered GI versus hematology consult pending initial workup. Initially our understanding was that he had had a recent colonoscopy though we would not probably be able to get the results as it was done in [place] however on further discussion today he did not have any testing done and was told improved that he requires endoscopy and colonoscopy -GI consulted on 01/12, EGD/colonoscopy today (2) Chest pain Code(s): R07.9 - Chest pain, unspecified Status: Acute Plan: 1 week history of substernal chest discomfort on exertion ACS workup negative Discontinuing telemetry on 01/12 Posttransfusion he has no pain is able to ambulate and is completely asymptomatic. (3) Dizziness Code(s): R42 - Dizziness and giddiness Status: Acute Plan: Several month history of occasional dizziness/lightheadedness A known history of anemia No falls or injuries See workup as above -Resolved (4) HTN (hypertension) Code(s): I10 - Essential (primary) hypertension Status: Acute Plan: Known history of hypertension Takes Benicar HCT daily, will continue home medication (5) BPH (benign prostatic hyperplasia) Code(s): N40.0 - Benign prostatic hyperplasia without lower urinary tract symptoms Status: Acute Plan: Known history of BPH Takes tamsulosin and finasteride daily Will continue his home medications (6) Nutrition, metabolism, and development symptoms Code(s): R63.8 - Other symptoms and signs concerning food and fluid intake Status: Acute Plan: No IV fluids at this time NPO until after procedure SCDs for DVT prophylaxis for now - Assessment and Plan 62-year-old male with history of hypertension, BPH, HLD and a known history of anemia presenting to the ED with dizziness and chest discomfort. Found to be anemic on admission and will be transfused 2 units of PRBCs. ACS was ruled out and symptoms resolved after transfusion. Consult GI and EGD/colonoscopy on 01/13 Disposition: Home today or tomorrow depending on results of GI procedure with follow-up at [facility] and outpatient with GI Discussed with Dr. Torres (1) Anemia Qualifiers: Anemia type: iron deficiency Iron deficiency anemia type: unspecified iron deficiency Qualified Code(s): D50.9 - Iron deficiency anemia, unspecified (2) Chest pain Qualifiers: Chest pain type: unspecified Qualified Code(s): R07.9 - Chest pain, unspecified (4) HTN (hypertension) Qualifiers: Hypertension type: essential hypertension Qualified Code(s): I10 - Essential (primary) hypertension (5) BPH (benign prostatic hyperplasia) Qualifiers: Lower urinary tract symptom presence: symptoms present Lower urinary tract symptom detail: unspecified Qualified Code(s): N40.1 - Benign prostatic hyperplasia with lower urinary tract symptoms
--- NOTE | 2018-01-14 09:47 | P.PNFP ---
Subjective Interval history: No acute events overnight. Patient tolerated his EGD and colonoscopy yesterday with no complications. GI planning for a upper GI series today so patient NPO. [employer] gas dispatcher was used during the interview. He denies any hematemesis, blood in stool, chest pain or dizziness. States he feels well. <Sita Polanco - 01/14/18 09:46> Results - Labs Result diagrams: 01/14/18 03:39 01/14/18 03:39 <Clarissa Torres - 01/14/18 14:43> Abnormal lab results 01/14/18 01/14/18 Range/Units 03:39 03:39 Hgb 10.1 L (13.0-17.0) gm/dL Hct 32.2 L (39.0-51.0) % MCV 65.8 L (80.0-100.0) fL MCH 20.6 L (27.0-34.0) pg MCHC 31.4 L (32.0-36.0) % RDW 28.2 H (11.6-17.2) % [place] % (Auto) 17.2 H (0.0-8.0) % Dimorphic RBCs Present H (None) Ovalocytes 1+ H (None) Potassium 3.4 L (3.5-5.1) meq/L Short CBC 01/14/18 Range/Units 03:39 WBC 4.7 (4.0-11.0) th/mm3 Hgb 10.1 L (13.0-17.0) gm/dL Hct 32.2 L (39.0-51.0) % Plt Count 310 (150-450) th/mm3 [facility] 01/14/18 03:39 Sodium 142 Potassium 3.4 L Chloride 106 Carbon Dioxide 27.1 BUN 9 Creatinine 0.76 Calcium 8.6 <Clarissa Torres - 01/14/18 14:43> Abnormal lab results 01/14/18 01/14/18 Range/Units 03:39 03:39 Hgb 10.1 L (13.0-17.0) gm/dL Hct 32.2 L (39.0-51.0) % MCV 65.8 L (80.0-100.0) fL MCH 20.6 L (27.0-34.0) pg MCHC 31.4 L (32.0-36.0) % RDW 28.2 H (11.6-17.2) % [place] % (Auto) 17.2 H (0.0-8.0) % Dimorphic RBCs Present H (None) Ovalocytes 1+ H (None) Potassium 3.4 L (3.5-5.1) meq/L Short CBC 01/14/18 Range/Units 03:39 WBC 4.7 (4.0-11.0) th/mm3 Hgb 10.1 L (13.0-17.0) gm/dL Hct 32.2 L (39.0-51.0) % Plt Count 310 (150-450) th/mm3 BMP 01/14/18 03:39 Sodium 142 Potassium 3.4 L Chloride 106 Carbon Dioxide 27.1 BUN 9 Creatinine 0.76 Calcium 8.6 <Sita Polanco - 01/14/18 09:46> - Imaging Impressions Upper GI and Small Bowel X-Ray 01/14/18 00:00 CONCLUSION: Colonic diverticulosis. Large hiatal hernia. Duodenal diverticulum. <Clarissa Torres - 01/14/18 14:43> Physical Exam Vital signs: Vital Signs 01/13/18 20:00 01/14/18 00:00 01/14/18 04:00 Temperature 98.3 F 98.3 F 98 F Pulse Rate 80 84 85 Respiratory Rate 15 14 16 Blood Pressure 130/82 122/92 H 126/81 Pulse Oximetry 96 96 94 L 01/14/18 08:00 Temperature 97.3 F L Pulse Rate 75 Respiratory Rate 20 Blood Pressure 103/62 Pulse Oximetry 98 Intake & Output 01/13/18 01/14/18 01/14/18 18:59 06:59 18:59 Intake Total 1300 / 1300 240 / 240 Balance 1300 / 1300 240 / 240 Weight 111.7 kg Intake: IV 650 / 650 LR 1000 mL Inj 1,000 ML @ 30 650 / 650 mls/hr IV.SIG .Q24H [facility] Rx#: [id number] Oral 240 / 240 Anesthesia Amount 650 / 650 Other: # Voids 3 # Bowel Movements 1 <Clarissa Torres - 01/14/18 14:43> Vital Signs 01/13/18 12:00 01/13/18 14:18 01/13/18 14:31 Temperature 97.4 F L 97.8 F Pulse Rate 58 L 77 74 Respiratory Rate 20 20 Blood Pressure 136/74 118/76 112/75 Pulse Oximetry 95 95 96 01/13/18 20:00 01/14/18 00:00 01/14/18 04:00 Temperature 98.3 F 98.3 F 98 F Pulse Rate 80 84 85 Respiratory Rate 15 14 16 Blood Pressure 130/82 122/92 H 126/81 Pulse Oximetry 96 96 94 L Intake & Output 01/13/18 01/14/18 01/14/18 18:59 06:59 18:59 Intake Total 1300 / 1300 240 / 240 Balance 1300 / 1300 240 / 240 Weight 111.7 kg Intake: IV 650 / 650 LR 1000 mL Inj 1,000 ML @ 30 650 / 650 mls/hr IV.SIG .Q24H [facility] Rx#: [id number] Oral 240 / 240 Anesthesia Amount 650 / 650 Other: # Voids 3 # Bowel Movements 1 <Sita Polanco 01/14/18 09:46> Narrative: GENERAL: Well-developed well-nourished pleasant male sitting upright in chair in no acute distress. Citizen Of [place]-speaking only. SKIN: Warm and dry. HEAD: Atraumatic. Normocephalic. EYES: Pupils equal and round. No scleral icterus. ENT: No nasal bleeding or discharge. MMM NECK: Trachea midline. No JVD. CARDIOVASCULAR: Regular rate and rhythm. RESPIRATORY: No accessory muscle use. Clear to auscultation. Breath sounds equal bilaterally. GASTROINTESTINAL: Abdomen soft, non-tender, nondistended. Hepatic and splenic margins not palpable. MUSCULOSKELETAL: Extremities without clubbing, cyanosis. Trace 1+ pitting edema distal to the midshin bilaterally. No obvious deformities. NEUROLOGICAL: Awake and alert. No obvious cranial nerve deficits. Motor grossly within normal limits. Five out of 5 muscle strength in the arms and legs. Normal speech. PSYCHIATRIC: Appropriate mood and affect; insight and judgment normal. <Sita Polanco 01/14/18 09:46> Assessment and Plan - Assessment (1) Anemia Code(s): D64.9 - Anemia, unspecified Status: Acute (2) Chest pain Code(s): R07.9 - Chest pain, unspecified Status: Acute (3) Dizziness Code(s): R42 - Dizziness and giddiness Status: Acute (4) HTN (hypertension) Code(s): I10 - Essential (primary) hypertension Status: Acute (5) BPH (benign prostatic hyperplasia) Code(s): N40.0 - Benign prostatic hyperplasia without lower urinary tract symptoms Status: Acute (6) Nutrition, metabolism, and development symptoms Code(s): R63.8 - Other symptoms and signs concerning food and fluid intake Status: Acute <Clarissa Torres - 01/14/18 14:43> (1) Anemia Code(s): D64.9 - Anemia, unspecified Status: Acute Plan: Patient with a reported history of anemia. Patient states that it was a "production problem" States he has taken supplemental iron and vitamin B12 Has required 3 prior blood transfusions over the last 10 years H&H of 7.6/25.8, MCV 60.8 on admission RDW 22 Normal WBC, platelet counts Renal function normal on admission Transfused 2 units with an appropriate response in H&H. Iron studies with low iron, high TIBC and low ferritin. Reticulocyte count elevated. Vitamin B12 and folate are both elevated Fecal occult blood negative -GI consulted on 01/12 -01/13 EGD:Normal espophagus; erythematous gastritis in the gastric antrum was biopsied; normal duodenal musoca in bulb and second portion; hiatal hernia. -01/13 colonoscopy: Moderate diverticulosis through colon. Internal and external hemorrhoids. -GI: recommendations upper GI series inpatient, follow up on biopsy results in 2 weeks, anti-reflux regimen and continue PPI. Recommeded Benefiber 2 tsp daily , yearly hemoccult, high fiber diet without seeds nuts popcorn. Repeat colonoscopy in 10 years and EGD in 3 years. -upper GI series today (2) Chest pain Code(s): R07.9 - Chest pain, unspecified Status: Acute Plan: 1 week history of substernal chest discomfort on exertion ACS workup negative Discontinuing telemetry on 01/12 Posttransfusion he has no pain is able to ambulate and is completely asymptomatic. (3) Dizziness Code(s): R42 - Dizziness and giddiness Status: Acute Plan: Several month history of occasional dizziness/lightheadedness A known history of anemia No falls or injuries See workup as above -Resolved (4) HTN (hypertension) Code(s): I10 - Essential (primary) hypertension Status: Acute Plan: Known history of hypertension Takes Benicar HCT daily, will continue home medication (5) BPH (benign prostatic hyperplasia) Code(s): N40.0 - Benign prostatic hyperplasia without lower urinary tract symptoms Status: Acute Plan: Known history of BPH Takes tamsulosin and finasteride daily Will continue his home medications (6) Nutrition, metabolism, and development symptoms Code(s): R63.8 - Other symptoms and signs concerning food and fluid intake Status: Acute Plan: No IV fluids at this time NPO until after procedure SCDs for DVT prophylaxis for now <Sita Polanco - 01/14/18 09:38> - Assessment and Plan 62-year-old male with history of hypertension, BPH, HLD and a known history of anemia presenting to the ED with dizziness and chest discomfort. Found to be anemic on admission and will be transfused 2 units of PRBCs. ACS was ruled out and symptoms resolved after transfusion. Consult GI and EGD/colonoscopy on 01/13 : Normal espophagus; erythematous gastritis in the gastric antrum was biopsied; normal duodenal musoca in bulb and second portion; hiatal hernia. Moderate diverticulosis through colon. Internal and external hemorrhoids. GI asked to be called in two weeks by patient for biopsy results and was encouraged to follow anti-reflux regimen and continue PPI. Recommeded Benefiber 2 tsp daily, yearly hemoccult, high fiber diet without seeds nuts popcorn, and Xray with small bowel follow through. Repeat colonoscopy in 10 years and EGD in 3 years. Patient was discharged with follow up at the [facility]. Disposition: Home today or tomorrow depending on results upper GI series and with follow-up at [facility] and outpatient with GI Discussed with Dr. Torres <Sita Polanco - 01/14/18 09:46> - Attending Attestation The exam, history, and the medical decision-making described in the above note were completed with the assistance of the resident physician. I reviewed and agree with the findings presented. I attest that I had a [id number] encounter with the patient on the same day, and personally performed and documented my assessment and findings in the medical record. <Clarissa Torres - 01/14/18 14:43> <Sita Polanco - Last Filed: 01/14/18 09:38> (1) Anemia Qualifiers: Anemia type: iron deficiency Iron deficiency anemia type: unspecified iron deficiency Qualified Code(s): D50.9 - Iron deficiency anemia, unspecified (2) Chest pain Qualifiers: Chest pain type: unspecified Qualified Code(s): R07.9 - Chest pain, unspecified (4) HTN (hypertension) Qualifiers: Hypertension type: essential hypertension Qualified Code(s): I10 - Essential (primary) hypertension (5) BPH (benign prostatic hyperplasia) Qualifiers: Lower urinary tract symptom presence: symptoms present Lower urinary tract symptom detail: unspecified Qualified Code(s): N40.1 - Benign prostatic hyperplasia with lower urinary tract symptoms <Clarissa Torres - Last Filed: 01/14/18 14:43> (1) Anemia Qualifiers: Anemia type: iron deficiency Iron deficiency anemia type: unspecified iron deficiency Qualified Code(s): D50.9 - Iron deficiency anemia, unspecified (2) Chest pain Qualifiers: Chest pain type: unspecified Qualified Code(s): R07.9 - Chest pain, unspecified (4) HTN (hypertension) Qualifiers: Hypertension type: essential hypertension Qualified Code(s): I10 - Essential (primary) hypertension (5) BPH (benign prostatic hyperplasia) Qualifiers: Lower urinary tract symptom presence: symptoms present Lower urinary tract symptom detail: unspecified Qualified Code(s): N40.1 - Benign prostatic hyperplasia with lower urinary tract symptoms <Sita Polanco - Last Filed: 01/14/18 09:38> (1) Anemia Qualifiers: Anemia type: iron deficiency Iron deficiency anemia type: unspecified iron deficiency Qualified Code(s): D50.9 - Iron deficiency anemia, unspecified (2) Chest pain Qualifiers: Chest pain type: unspecified Qualified Code(s): R07.9 - Chest pain, unspecified (4) HTN (hypertension) Qualifiers: Hypertension type: essential hypertension Qualified Code(s): I10 - Essential (primary) hypertension (5) BPH (benign prostatic hyperplasia) Qualifiers: Lower urinary tract symptom presence: symptoms present Lower urinary tract symptom detail: unspecified Qualified Code(s): N40.1 - Benign prostatic hyperplasia with lower urinary tract symptoms <Clarissa Torres - Last Filed: 01/14/18 14:43> (1) Anemia Qualifiers: Anemia type: iron deficiency Iron deficiency anemia type: unspecified iron deficiency Qualified Code(s): D50.9 - Iron deficiency anemia, unspecified (2) Chest pain Qualifiers: Chest pain type: unspecified Qualified Code(s): R07.9 - Chest pain, unspecified (4) HTN (hypertension) Qualifiers: Hypertension type: essential hypertension Qualified Code(s): I10 - Essential (primary) hypertension (5) BPH (benign prostatic hyperplasia) Qualifiers: Lower urinary tract symptom presence: symptoms present Lower urinary tract symptom detail: unspecified Qualified Code(s): N40.1 - Benign prostatic hyperplasia with lower urinary tract symptoms
--- NOTE | 2018-01-14 11:20 | FL ---
EXAM DATE: 01/14/2018 11:02 AM EDT AGE/SEX: 62 years / Male INDICATIONS: Anemia. CLINICAL DATA: This is the patient's subsequent encounter. Patient reports that signs and symptoms h ave been present for 3 days and indicates a pain score of 0/10. MEDICAL/SURGICAL HISTORY: Anemia. Hypertension. None. COMPARISON: No prior exams available for comparison. FLUORO TIME: 0.8 minutes IMAGE COUNT: 15 CONTRAST: FINDINGS: Preliminary film is unremarkable. There is a large hiatal hernia containing estimated 50% of the stomach. A duodenal diverticulum is piper spected at the transverse portion of the duodenum measuring 4 cm. Examination of the small bowel demonstrates normal mucosal pattern involving the jejunum and ileum. There is no evidence of mass or obstruction. No intraluminal filling defects are identified. Small bowel transit time is normal at 30 minutes. Fluoroscopy of the abdomen and terminal ileum demonstrat es no abnormality. Diverticulosis of the sigmoid and descending CONCLUSION: Colonic diverticulosis. Large hiatal hernia. Duodenal diverticulum. Electronically signed by: Piero Holly MD 01/14/2018 11:18 AM EDT
--- NOTE | 2018-01-14 12:33 | P.PNGI ---
Subjective Interval history: Pt in bedside chair, no complaints at this time. States multiple BMs since having the SBFT, denies any blood in stool. Denies nausea, vomiting, abdominal pain. Tolerating liquid diet. <Beverly Danielson - Last Filed: 01/14/18 12:29> Physical Exam Vital signs: Vital Signs 01/13/18 14:18 01/13/18 14:31 01/13/18 20:00 Temperature 97.8 F 98.3 F Pulse Rate 77 74 80 Respiratory Rate 20 15 Blood Pressure 118/76 112/75 130/82 Pulse Oximetry 95 96 96 01/14/18 00:00 01/14/18 04:00 01/14/18 08:00 Temperature 98.3 F 98 F 97.3 F L Pulse Rate 84 85 75 Respiratory Rate 14 16 20 Blood Pressure 122/92 H 126/81 103/62 Pulse Oximetry 96 94 L 98 Intake & Output 01/13/18 01/14/18 01/14/18 18:59 06:59 18:59 Intake Total 1300 / 1300 240 / 240 Balance 1300 / 1300 240 / 240 Weight 111.7 kg Intake: IV 650 / 650 LR 1000 mL Inj 1,000 ML @ 30 650 / 650 mls/hr IV.SIG .Q24H [facility] Rx#: [id number] Oral 240 / 240 Anesthesia Amount 650 / 650 Other: # Voids 3 # Bowel Movements 1 - Constitutional no acute distress - Routine HEENT Exam Head: Present: normocephalic, atraumatic - Routine Respiratory Exam Absent: accessory muscle use - Routine Abdominal Exam Present: soft, normoactive bowel sounds. Absent: tenderness, distended - Routine Skin Exam Present: dry, warm - Routine Neurological Exam Present: alert, oriented X3 <Beverly Danielson - Last Filed: 01/14/18 12:29> Vital signs: Vital Signs 01/13/18 20:00 01/14/18 00:00 01/14/18 04:00 Temperature 98.3 F 98.3 F 98 F Pulse Rate 80 84 85 Respiratory Rate 15 14 16 Blood Pressure 130/82 122/92 H 126/81 Pulse Oximetry 96 96 94 L 01/14/18 08:00 Temperature 97.3 F L Pulse Rate 75 Respiratory Rate 20 Blood Pressure 103/62 Pulse Oximetry 98 Intake & Output 01/13/18 01/14/1818 18:59 06:59 18:59 Intake Total 1300 / 1300 240 / 240 Balance 1300 / 1300 240 / 240 Weight 111.7 kg Intake: IV 650 / 650 LR 1000 mL Inj 1,000 ML @ 30 650 / 650 mls/hr IV.SIG .Q24H [facility] Rx#: [id number] Oral 240 / 240 Anesthesia Amount 650 / 650 Other: # Voids 3 # Bowel Movements 1 <Lizbeth Cannon - Last Filed: 01/14/18 17:11> Results - Labs CBC & Chem 7: 01/14/18 03:39 01/14/18 03:39 Laboratory Results - last 24 hr 01/14/18 01/14/18 03:39 03:39 WBC 4.7 RBC 4.90 Hgb 10.1 L Hct 32.2 L MCV 65.8 L MCH 20.6 L MCHC 31.4 L RDW 28.2 H Plt Count 310 MPV 8.3 Prelim Diff (Auto) Slide review pending Neut % (Auto) 48.7 Lymph % (Auto) 29.4 [place] % (Auto) 17.2 H Eos % (Auto) 3.7 Baso % (Auto) 1.0 Neut # (Auto) 2.3 Lymph # (Auto) 1.4 [place] # (Auto) 0.8 Eos # (Auto) 0.2 Baso # (Auto) 0.0 WBC Differential . Diff Scan Auto diff confirmed Differential Comment . Platelet Estimate Normal Platelet Morphology Normal Dimorphic RBCs Present H Ovalocytes 1+ H Sodium 142 Potassium 3.4 L Chloride 106 Carbon Dioxide 27.1 Anion Gap 9 BUN 9 Creatinine 0.76 Estimated GFR Greater than 89 Random Glucose 85 Calcium 8.6 - Imaging Impressions Upper GI and Small Bowel X-Ray 01/14/18 00:00 CONCLUSION: Colonic diverticulosis. Large hiatal hernia. Duodenal diverticulum. <Beverly Danielson - Last Filed: 01/14/18 12:29> - Labs CBC & Chem 7: 01/14/18 03:39 01/14/18 03:39 Laboratory Results - last 24 hr 01/14/18 01/14/18 03:39 03:39 WBC 4.7 RBC 4.90 Hgb 10.1 L Hct 32.2 L MCV 65.8 L MCH 20.6 L MCHC 31.4 L RDW 28.2 H Plt Count 310 MPV 8.3 Prelim Diff (Auto) Slide review pending Neut % (Auto) 48.7 Lymph % (Auto) 29.4 [place] % (Auto) 17.2 H Eos % (Auto) 3.7 Baso % (Auto) 1.0 Neut # (Auto) 2.3 Lymph # (Auto) 1.4 [place] # (Auto) 0.8 Eos # (Auto) 0.2 Baso # (Auto) 0.0 WBC Differential . Diff Scan Auto diff confirmed Differential Comment . Platelet Estimate Normal Platelet Morphology Normal Dimorphic RBCs Present H Ovalocytes 1+ H Sodium 142 Potassium 3.4 L Chloride 106 Carbon Dioxide 27.1 Anion Gap 9 BUN 9 Creatinine 0.76 Estimated GFR Greater than 89 Random Glucose 85 Calcium 8.6 - Imaging Impressions Upper GI and Small Bowel X-Ray 01/14/18 00:00 CONCLUSION: Colonic diverticulosis. Large hiatal hernia. Duodenal diverticulum. <Lizbeth Cannon - Last Filed: 01/14/18 17:11> Assessment and Plan - Plan Assessment: - Acute on chronic anemia, microcytic, hypochromic No obvious GIB. S/P EGD and colonoscopy. EGD --> Normal esophagus. Erythematous gastritis in the gastric antrum. Normal duodenal mucosa in the bulb and second portion of the duodenum. Hiatal hernia. Colonoscopy --> Moderate diverticulosis throughout entire examined colon, Internal and external hemorrhoids. Upper GI with SBFT --> Colonic diverticulosis. Large hiatal hernia. Duodenal diverticulum. (01/14) H/H stable overnight. Pt reports multiple BMs since SBFT, no other complaints at this time. Denies nausea, vomiting, abdominal pain, blood in his stool. Plan: Advance diet Protonix EGD biopsy pending OK to DC from a GI standpoint Have pt follow up with GI after DC Capsule endoscopy outpatient Pt has been seen and examined by myself and Dr. Cannon and this note is written on his behalf <Beverly Danielson - Last Filed: 01/14/18 12:29> - Plan Seen and examined with BUSINESS CONTINUITY COORDINATOR, no bleeding. SBFT noted. DC home with gi fu. The exam, history, and the medical decision-making described in the above note were completed with the assistance of the mid-level provider. I reviewed and agree with the findings presented. I attest that I had a [id number] encounter with the patient on the same day, and personally performed and documented my assessment and findings in the medical record. <Lizbeth Cannon - Last Filed: 01/14/18 17:11>
--- NOTE | 2018-01-14 14:56 | P.DS ---
Date of admission: 01/10/18 13:19 Primary care physician: No Primary Care Physician Brief History from admission: 62-year-old Marshallese-speaking male with a history of hypertension, hyperlipidemia , anxiety and depression as well as a known history of anemia presented to the emergency department with complaints of dizziness and chest discomfort. 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 He also endorsed left-sided headache and occasional blurry vision. Denies any syncopal episodes, falls or injuries. States for the last week he has had occasional exertional chest pain. Describes it as substernal pressure that does not radiate to his neck, back or shoulder. Patient stated that he has been told he has anemia for the last 10 years. He was told previously that it was a "production problem" and states he has had 3 different blood transfusions over the last 10 years while in [place]. He also states that 2 months ago he was in [place] and went to hospital for the dizziness and had an EGD/colonoscopy done, but was not told what the results were. He states he did not receive a blood transfusion at that time. Denies any hematemesis, melena, blood in his stool. Patient has been taking supplemental iron and has received vitamin B12 shots in the past as well. He is not established with a primary care physician since moving to the [facility]. Another sugar plantation manager was employed today to get further history. He explains further that he did not have any sort of colonoscopy or scopes in [place]. He was told in [place] that when he came to the [facility] that he should strongly consider having that done. He denies now or in the past seeing blood in the stools but does have a long history of iron deficiency anemia. He also states that he saw a hand mica plate layer but he was in [place] and I guess in [place] at the time and we will never be able to obtain those records. Because of his or the original assumption that he had already had colonoscopy gastroenterology was not consulted but on clarifying this today we will put the consult in. Any man particularly over the age of 50 who has iron deficiency anemia it needs to be strongly evaluated for GI bleeding. Otherwise he states he feels well overnight he has been walking around the room he has no problems a transfusion was ordered in the emergency department and he had that last night and feels completely asymptomatic as far as any chest pain or other dizziness or shortness of breath or anything else. DS: Diagnosis - Discharge Diagnosis (1) Anemia Status: Acute (2) Chest pain Status: Acute (3) Dizziness Status: Acute (4) HTN (hypertension) Status: Acute (5) BPH (benign prostatic hyperplasia) Status: Acute (6) Nutrition, metabolism, and development symptoms Status: Acute DS: Medications - Discharge Medications Prescriptions: ferrous sulfate [Feosol] 325 mg PO EVERY OTHER DAY #30 tab pantoprazole 40 mg PO DAILY #30 tab DS: Summary Hospital Course: 62-year-old male with history of hypertension, BPH, HLD and a known history of anemia presenting to the ED with dizziness and chest discomfort. Found to be anemic on admission Hgb 7.6/ Hct 25.8 and was transfused 2 units of PRBCs so Hgb improved to 9.5/ 30.5. ACS was ruled out with troponin <.2 and EGK sinus rhythm and no evidence of ischemia. Symptoms resolved after transfusion. Iron studies showed low iron (22), high TIBC (456) and low saturation (4.8%). Ferritin was low at 2. Folate was elevated (greater than 20) and B12 was high 1887. Patient was taking supplemental B12 and folate at admission. GI was consulted and performed EGD/colonoscopy on 01/13: Normal espophagus; erythematous gastritis in the gastric antrum was biopsied; normal duodenal musoca in bulb and second portion; hiatal hernia. Moderate diverticulosis through colon. Internal and external hemorrhoids. 01/14 Upper GI series with small bowel follow through: colonic diverticulosis, large hiatal hernia, duodenal diverticulum GI asked to be called in two weeks by patient for biopsy results and was encouraged to follow anti-reflux regimen and continue PPI. Outpatient follow-up with GI and possible capsule endoscopy. Recommeded Benefiber 2 tsp daily, yearly hemoccult, high fiber diet without seeds nuts popcorn. Repeat colonoscopy in 10 years and EGD in 3 years. Patient was discharged with follow up at the [facility] and GI. Also given prescriptions for protonix and iron supplementation. - Time Spent with Patient Total time spent providing and/or coordinating discharge services: Less than 30 minutes - Quality: VTE Deep Vein Thrombosis/Pulmonary Embolism Present on Admission: No Exam Vital signs: Vital Signs 01/13/18 20:00 01/14/18 00:00 01/14/18 04:00 Temperature 98.3 F 98.3 F 98 F Pulse Rate 80 84 85 Respiratory Rate 15 14 16 Blood Pressure 130/82 122/92 H 126/81 Pulse Oximetry 96 96 94 L 01/14/18 08:00 Temperature 97.3 F L Pulse Rate 75 Respiratory Rate 20 Blood Pressure 103/62 Pulse Oximetry 98 Intake & Output 01/13/18 01/14/18 01/14/18 18:59 06:59 18:59 Intake Total 1300 / 1300 240 / 240 Balance 1300 / 1300 240 / 240 Weight 111.7 kg Intake: IV 650 / 650 LR 1000 mL Inj 1,000 ML @ 30 650 / 650 mls/hr IV.SIG .Q24H NEELAM Rx#: [id number] Oral 240 / 240 Anesthesia Amount 650 / 650 Other: # Voids 3 # Bowel Movements 1 Narrative: GENERAL: Well-developed well-nourished pleasant male sitting upright in chair in no acute distress. Marshallese-speaking only. SKIN: Warm and dry. HEAD: Atraumatic. Normocephalic. EYES: Pupils equal and round. No scleral icterus. ENT: No nasal bleeding or discharge. MMM NECK: Trachea midline. No JVD. CARDIOVASCULAR: Regular rate and rhythm. RESPIRATORY: No accessory muscle use. Clear to auscultation. Breath sounds equal bilaterally. GASTROINTESTINAL: Abdomen soft, non-tender, nondistended. Hepatic and splenic margins not palpable. MUSCULOSKELETAL: Extremities without clubbing, cyanosis. Trace 1+ pitting edema distal to the midshin bilaterally. No obvious deformities. NEUROLOGICAL: Awake and alert. No obvious cranial nerve deficits. Motor grossly within normal limits. Five out of 5 muscle strength in the arms and legs. Normal speech. PSYCHIATRIC: Appropriate mood and affect; insight and judgment normal. Results Procedures completed during hospitalization: 01/13 EGD/Colonoscopy Labs on day of discharge: Labs from last 24 hours 01/14/18 01/14/18 03:39 03:39 WBC 4.7 RBC 4.90 Hgb 10.1 L Hct 32.2 L MCV 65.8 L MCH 20.6 L MCHC 31.4 L RDW 28.2 H Plt Count 310 MPV 8.3 Prelim Diff (Auto) Slide review pending Neut % (Auto) 48.7 Lymph % (Auto) 29.4 Benson % (Auto) 17.2 H Eos % (Auto) 3.7 Baso % (Auto) 1.0 Neut # (Auto) 2.3 Lymph # (Auto) 1.4 Benson # (Auto) 0.8 Eos # (Auto) 0.2 Baso # (Auto) 0.0 WBC Differential . Diff Scan Auto diff confirmed Differential Comment . Platelet Estimate Normal Platelet Morphology Normal Dimorphic RBCs Present H Ovalocytes 1+ H Sodium 142 Potassium 3.4 L Chloride 106 Carbon Dioxide 27.1 Anion Gap 9 BUN 9 Creatinine 0.76 Estimated GFR Greater than 89 Random Glucose 85 Calcium 8.6 - Impressions ITS Impressions Chest X-Ray 01/10/18 11:16 CONCLUSION: No acute cardiopulmonary disease. Hiatal hernia. Upper GI and Small Bowel X-Ray 01/14/18 00:00 CONCLUSION: Colonic diverticulosis. Large hiatal hernia. Duodenal diverticulum. Discharge Plan - Discharge Disposition Patient Disposition: Discharge Home - Discharge Condition Condition: Stable - Discharge Order Discharge Orders: Discharge Order (Routine); Ordered 01/14/18 Ordered By: Sita Polanco - Physicians Team Primary Care Provider: Primary Care Mellisa Muniz Attending Provider: Clarissa Torres Other Providers: Lizbeth Cannon MD
== END 2018-01-14 15:53 | disposition home or self-care (01) ==
LOC: NEPC 10:47 → NEDA 13:19 → N04 15:39
PROVIDERS: ADMIT Family Medicine; ATTEND Family Medicine
PROC: PANENDO (2018-01-13 13:05)
PROC: COLONOS (2018-01-13 13:05)